=== PATIENT | female | born 1940 | race Caucasian/White ===

== ENCOUNTER 2019-04-12 13:27 | Inpatient (IN) | payer MEDICARE, BC ==
[2019-04-12] MEDS ORDERED: FUROSEMIDE 10 MG/ML 4 ML VIAL IV STA (14:10)
--- NOTE | 2019-04-12 14:13 | ED ---
General Adult HPI - General Chief complaint: Shortness of Breath Stated complaint: SOB, dehydrated Time Seen by Provider: 04/12/19 13:35 Source: patient, family, RN notes reviewed Mode of arrival: wheelchair Limitations: no limitations - History of Present Illness Initial comments: This is a 79-year-old female presents emergency Department complaining of difficulty breathing. Patient states been ongoing about a month she also has a decreased appetite over that same period of time. Patient states over the last week difficulty breathing is CAT scan showed with any exertion. Patient is also noticed over the last week her legs become very swollen. Family also was noticed some bulging veins in her neck as well. Patient denies any chest pain or heaviness. Patient denies any palpitations. Patient denies any recent fever chills or cough per patient denies any lightheadedness dizziness or near syncopal episode. Patient denies any numbness or weakness. Patient denies any abdominal pain patient denies nausea vomiting diarrhea. - Related Data Home Medications Medication Instructions Recorded Confirmed No Known Home Medications 04/12/19 04/12/19 Allergies Allergy/AdvReac Type Severity Reaction Status Date / Time No Known Allergies Allergy Verified 04/12/19 14:00 Review of Systems ROS Statement: Those systems with pertinent positive or pertinent negative responses have been documented in the HPI. ROS Other: All systems not noted in ROS Statement are negative. Past Medical History Additional Past Medical History / Comment(s): RA History of Any Multi-Drug Resistant Organisms: None Reported Past Surgical History: No Surgical Hx Reported Past Psychological History: No Psychological Hx Reported Smoking Status: Former smoker Past Alcohol Use History: None Reported Past Drug Use History: None Reported General Exam - General Exam Comments Initial Comments: GENERAL: Patient is well-developed and well-nourished. Patient is nontoxic and well- hydrated and is in mild distress. ENT: Neck is soft and supple. No significant lymphadenopathy is noted. Oropharynx is clear. Moist mucous membranes. Neck has full range of motion without eliciting any pain. Patient has positive JVD EYES: The sclera were anicteric and conjunctiva were pink and moist. Extraocular movements were intact and pupils were equal round and reactive to light. Eyelids were unremarkable. PULMONARY: She has diminished breath sounds in the right base and crackles in the left. CARDIOVASCULAR: There is a regular rate and rhythm without any murmurs gallops or rubs. ABDOMEN: Soft and nontender with normal bowel sounds. No palpable organomegaly was noted . There is no palpable pulsatile mass. SKIN: Skin is clear with no lesions or rashes and otherwise unremarkable. NEUROLOGIC: Patient is alert and oriented x3. Cranial nerves II through XII are grossly intact. Motor and sensory are also intact. Normal speech, volume and content. Symmetrical smile. MUSCULOSKELETAL: Normal extremities with adequate strength and full range of motion. 2+ edema bilaterally LYMPHATICS: No significant lymphadenopathy is noted PSYCHIATRIC: Normal psychiatric evaluation. Limitations: no limitations Course Vital Signs 04/12/19 04/12/19 04/12/19 13:36 14:31 16:31 Temperature 98.3 F Pulse Rate 105 H 104 H 98 Respiratory 22 18 18 Rate Blood Pressure 144/82 156/104 158/97 O2 Sat by Pulse 93 L 97 98 Oximetry Medical Decision Making - Medical Decision Making EKG shows sinus tachycardia at 180 bpm SD interval is 152 QRS is 112 QT interval 358 QTC is 479. New. Patient received Lasix emergency department I spoke with Dr. Mosley he agreed to admit the patient admitted the patient remaining orders I continued Lasix on the floor. Patient has a high white count and with effusion there could be a infiltrate that is hidden I will start the patient on antibiotics. - Lab Data Result diagrams: 04/12/19 14:00 04/12/19 14:00 Lab Results 04/12/19 04/12/19 04/12/19 Range/Units 14:00 14:00 14:00 WBC 25.1 H (3.8-10.6) k/uL RBC 5.10 (3.80-5.40) m/uL Hgb 10.9 L (11.4-16.0) gm/dL Hct 37.5 (34.0-46.0) % MCV 73.5 L (80.0-100.0) fL MCH 21.3 L (25.0-35.0) pg MCHC 29.0 L (31.0-37.0) g/dL RDW 16.8 H (11.5-15.5) % Plt Count 265 (150-450) k/uL Neutrophils % 93 % Lymphocytes % 3 % Monocytes % 3 % Eosinophils % 0 % Basophils % 0 % Neutrophils # 23.4 H (1.3-7.7) k/uL Lymphocytes # 0.8 L (1.0-4.8) k/uL Monocytes # 0.7 (0-1.0) k/uL Eosinophils # 0.1 (0-0.7) k/uL Basophils # 0.0 (0-0.2) k/uL Hypochromasia Marked Poikilocytosis Slight Anisocytosis Slight Microcytosis Moderate PT (9.0-12.0) sec INR (<1.2) APTT (22.0-30.0) sec Sodium 141 (137-145) mmol/L Potassium 4.6 (3.5-5.1) mmol/L Chloride 103 (98-107) mmol/L Carbon Dioxide 24 (22-30) mmol/L Anion Gap 14 mmol/L BUN 27 H (7-17) mg/dL Creatinine 0.56 (0.52-1.04) mg/dL Est GFR (CKD-EPI)AfAm >90 (>60 ml/min/1.73 sqM) Est GFR (CKD-EPI)NonAf >90 (>60 ml/min/1.73 sqM) Glucose 170 H (74-99) mg/dL Calcium 9.3 (8.4-10.2) mg/dL Magnesium 2.0 (1.6-2.3) mg/dL Total Bilirubin 1.6 H (0.2-1.3) mg/dL AST 52 H (14-36) U/L ALT 47 (9-52) U/L Alkaline Phosphatase 119 (38-126) U/L Troponin I (0.000-0.034) ng/mL NT-Pro-B Natriuret Pep 41137 pg/mL Total Protein 7.2 (6.3-8.2) g/dL Albumin 3.5 (3.5-5.0) g/dL 04/12/19 04/12/19 Range/Units 14:00 14:00 WBC (3.8-10.6) k/uL RBC (3.80-5.40) m/uL Hgb (11.4-16.0) gm/dL Hct (34.0-46.0) % MCV (80.0-100.0) fL MCH (25.0-35.0) pg MCHC (31.0-37.0) g/dL RDW (11.5-15.5) % Plt Count (150-450) k/uL Neutrophils % % Lymphocytes % % Monocytes % % Eosinophils % % Basophils % % Neutrophils # (1.3-7.7) k/uL Lymphocytes # (1.0-4.8) k/uL Monocytes # (0-1.0) k/uL Eosinophils # (0-0.7) k/uL Basophils # (0-0.2) k/uL Hypochromasia Poikilocytosis Anisocytosis Microcytosis PT 13.3 H (9.0-12.0) sec INR 1.3 H (<1.2) APTT 26.2 (22.0-30.0) sec Sodium (137-145) mmol/L Potassium (3.5-5.1) mmol/L Chloride (98-107) mmol/L Carbon Dioxide (22-30) mmol/L Anion Gap mmol/L BUN (7-17) mg/dL Creatinine (0.52-1.04) mg/dL Est GFR (CKD-EPI)AfAm (>60 ml/min/1.73 sqM) Est GFR (CKD-EPI)NonAf (>60 ml/min/1.73 sqM) Glucose (74-99) mg/dL Calcium (8.4-10.2) mg/dL Magnesium (1.6-2.3) mg/dL Total Bilirubin (0.2-1.3) mg/dL AST (14-36) U/L ALT (9-52) U/L Alkaline Phosphatase (38-126) U/L Troponin I 0.050 H* (0.000-0.034) ng/mL NT-Pro-B Natriuret Pep pg/mL Total Protein (6.3-8.2) g/dL Albumin (3.5-5.0) g/dL Disposition Clinical Impression: Acute pulmonary edema, Pleural effusion, Pneumonia Disposition: ADMITTED IP TO THIS [facility] Time of Disposition: 15:56
[2019-04-12 14:28] LABS: Anisocytosis Slight; Basophils % (A) 0 %; Eosinophils # (A) 0.1 k/uL (0-0.7); Eosinophils % (A) 0 %; HCT 37.5 % (34.0-46.0); HGB 10.9 gm/dL (11.4-16.0); Hypochromasia Marked; Lymphocytes # (A) 0.8 k/uL (1.0-4.8); Lymphocytes % (A) 3 %; MCH 21.3 pg (25.0-35.0); MCV 73.5 fL (80.0-100.0); Mean Platelet Volume 8.4; Microcytosis Moderate; Monocytes # (A) 0.7 k/uL (0-1.0); Monocytes % (A) 3 %; Neutrophils # (A) 23.4 k/uL (1.3-7.7); Neutrophils % (A) 93 %; Platelet Count 265 k/uL (150-450); Poikilocytosis Slight; RDW 16.8 % (11.5-15.5); WBC 25.1 k/uL (3.8-10.6)
[2019-04-12 14:37] LABS: INR 1.3 (<1.2); Partial Thromboplastin Time 26.2 sec (22.0-30.0); Prothrombin Time 13.3 sec (9.0-12.0)
[2019-04-12 14:42] LABS: ALT 47 U/L (9-52); AST 52 U/L (14-36); African American GFR (CKD) >90 (>60 ml/min/1.73 sqM); Albumin 3.5 g/dL (3.5-5.0); Alkaline Phosphatase 119 U/L (38-126); Anion Gap 14 mmol/L; Blood Urea Nitrogen 27 mg/dL (7-17); Calcium 9.3 mg/dL (8.4-10.2); Carbon Dioxide 24 mmol/L (22-30); Chloride 103 mmol/L (98-107); Glucose 170 mg/dL (74-99); Potassium 4.6 mmol/L (3.5-5.1); Sodium 141 mmol/L (137-145); Total Bilirubin 1.6 mg/dL (0.2-1.3); Total Protein 7.2 g/dL (6.3-8.2)
--- NOTE | 2019-04-12 14:53 | XR ---
EXAMINATION TYPE: XR chest 2V DATE OF EXAM: 04/12/2019 COMPARISON: None INDICATION: Difficulty breathing TECHNIQUE: Frontal and lateral views of the chest are obtained. FINDINGS: The heart size is borderline prominent. The pulmonary vasculature is normal. There is a moderate right pleural effusion. A small left pleural effusion may be present.. IMPRESSION: 1. Moderate right and small left pleural effusions.
[2019-04-12] MEDS ORDERED: cefTRIAXone IN SWFI 1,000 MG/10 ML SYRINGE IVP STA (15:31)
[2019-04-12] MEDS ORDERED: KETOROLAC 30 MG/ML 1 ML VIAL IVP STA (15:54)
[2019-04-12] MEDS ORDERED: AZITHROMYCIN 500 MG in SODIUM CHLORIDE 0.9% 250 ML IVPB STA (17:48)
[2019-04-12 18:14] LABS: Appearance,Urine Clear (Clear); Bilirubin,Urine Negative (Negative); Blood,Urine Small (Negative); Color,Urine Light Yellow; Glucose,Urine (UA) Negative (Negative); Ketones,Urine Negative (Negative); Leukocyte Esterase,Urine Large (Negative); Mucus,Urine Few /hpf; Nitrite,Urine Negative (Negative); Protein,Urine Negative (Negative); RBC,Urine 7 /hpf (0-5); Specific Gravity,Urine 1.006 (1.001-1.035); Squamous Epithelial Cell,Urine 1 /hpf (0-4); Urobilinogen,Urine <2.0 mg/dL (<2.0)
--- NOTE | 2019-04-12 18:30 | CT ---
EXAMINATION TYPE: CT chest angio for PE with contrast and with 3-D reconstruction renderings DATE OF EXAM: 04/12/2019 COMPARISON: 04/12/2019 CXR HISTORY: Dyspnea. CT DLP: 158.2 mGycm Automated exposure control for dose reduction was used. CONTRAST: CT Chest for pulmonary embolism performed with with IV Contrast, patient injected with 100 mL of Isovue 370. FINDINGS: Airways: Unremarkable. Pleural spaces: There is a large gravity-dependent right pleural effusion occupying one third of the right hemithorax, associated with passive atelectasis. Small left pleural effusion noted, associated with minimal passive atelectasis of the left lung base. Lungs: Other than the above, unremarkable. PULMONARY ARTERIAL TREE: THERE ARE BILATERAL SEGMENTAL FILLING DEFECTS, CONSISTENT WITH NONOCCLUSIVE MULTIFOCAL PULMONARY EMBOLI. THERE IS NO CT EVIDENCE OF RIGHT HEART STRAIN. Mediastinum/selene: There is marked cardiomegaly with panchamber enlargement, coronary calcifications, and aortic and mitral valve plane calcifications. There is no pericardial effusion. There are no acut e aortic findings are evident, although limited contrast opacification of the left heart and aorta li mits sensitivity. No adenopathy. Skeletal structures: No acute findings. Other: Unremarkable. IMPRESSION: 1.) POSITIVE FOR BILATERAL NONOCCLUSIVE PULMONARY EMBOLI WITHOUT EVIDENCE OF RIGHT HEART STRAIN. 2.) Bilateral pleural effusions, larger on the right.
--- NOTE | 2019-04-12 18:31 | P.HPIM ---
History of Present Illness H&P Date: 04/12/19 Isabel Mooney is a 79 year old female patient of Dr. Mendez who presented to [facility] emergency room with a chief complaint of worsening shortness of breath over the past few days, generalized fatigue, lower extremity edema and weakness. Patient states that her symptoms started about 1 month ago but has been worsening significantly over the last few days. Otherwise she denies any complaints there was no fever or chills no headache or dizziness no chest pain no cough no nausea or vomiting no abdominal pain no diarrhea no burning was urination no frequency or urgency and no hematuria. Patient was evaluated in the emergency room she had a chest x-ray that revealed bilateral pleural effusion right more than left, laboratory data was significant for leukocytosis with a white blood count of 25,000 anemia with hemoglobin of 10.9 elevated d-dimer at 5.8 and slightly elevated troponin at 0.05 also BNP was elevated at 16,200 urine analysis revealed evidence of urinary tract infection with large leukocyte esterase and 13 white blood cells per high-power field. Patient was admitted to telemetry floor computed tomography scan angiogram of the chest was ordered to rule out pulmonary embolism results are still pending she was started on IV antibiotic Rocephin and Zithromax she was started on IV Lasix 40 mg every 12 hours echocardiogram was ordered pulmonary consultation and cardiology consultation were requested. Past Medical History Additional Past Medical History / Comment(s): RA History of Any Multi-Drug Resistant Organisms: None Reported Past Surgical History: No Surgical Hx Reported Past Psychological History: No Psychological Hx Reported Smoking Status: Former smoker Past Alcohol Use History: None Reported Past Drug Use History: None Reported Medications and Allergies Home Medications Medication Instructions Recorded Confirmed Type No Known Home Medications 04/12/19 04/12/19 History Allergies Allergy/AdvReac Type Severity Reaction Status Date / Time No Known Allergies Allergy Verified 04/12/19 14:00 Physical Exam Vitals: Vital Signs Temp Pulse Pulse Resp BP BP Pulse Ox 04/12/19 17:18 96.9 F L 101 H 18 147/93 95 04/12/19 16:31 98 18 158/97 98 04/12/19 14:31 104 H 18 156/104 97 04/12/19 13:36 98.3 F 105 H 22 144/82 93 L Intake and Output 04/12/19 04/12/19 04/12/19 06:59 14:59 22:59 Output Total 900 Balance -900 Output: Urine 900 Other: # Voids 1 Weight 48.988 kg 72 kg In general patient is alert and oriented 3 in no apparent distress HEENT head normocephalic and atraumatic Neck is supple no jugular venous distention no goiter no lymphadenopathy no carotid bruit Chest exam reveals a few scattered crackles no wheezing Cardiac exam reveals regular heart sounds S1 and S2 no gallops no murmurs Abdomen is soft nontender no organomegaly with normal bowel sounds Extremity exam reveals no edema no cyanosis or clubbing, there is severe joint deformities in the hands related to long-standing rheumatoid arthritis Neurological examination reveals no gross focal deficit gait was not tested due to patient weakness Results CBC & Chem 7: 04/12/19 14:00 04/12/19 14:00 Labs: Abnormal Lab Results - Last 24 Hours (Table) 04/12/19 04/12/19 04/12/19 Range/Units 14:00 14:00 14:00 WBC 25.1 H (3.8-10.6) k/uL Hgb 10.9 L (11.4-16.0) gm/dL MCV 73.5 L (80.0-100.0) fL MCH 21.3 L (25.0-35.0) pg MCHC 29.0 L (31.0-37.0) g/dL RDW 16.8 H (11.5-15.5) % Neutrophils # 23.4 H (1.3-7.7) k/uL Lymphocytes # 0.8 L (1.0-4.8) k/uL PT 13.3 H (9.0-12.0) sec INR 1.3 H (<1.2) D-Dimer (<0.60) mg/L FEU BUN 27 H (7-17) mg/dL Glucose 170 H (74-99) mg/dL Total Bilirubin 1.6 H (0.2-1.3) mg/dL AST 52 H (14-36) U/L Troponin I (0.000-0.034) ng/mL Urine Blood (Negative) Ur Leukocyte Esterase (Negative) Urine RBC (0-5) /hpf Urine WBC (0-5) /hpf Urine Mucus (None) /hpf 04/12/19 04/12/1904/12/19 Range/Units 14:00 14:00 18:00 WBC (3.8-10.6) k/uL Hgb (11.4-16.0) gm/dL MCV (80.0-100.0) fL MCH (25.0-35.0) pg MCHC (31.0-37.0) g/dL RDW (11.5-15.5) % Neutrophils # (1.3-7.7) k/uL Lymphocytes # (1.0-4.8) k/uL PT (9.0-12.0) sec INR (<1.2) D-Dimer 5.84 H (<0.60) mg/L FEU BUN (7-17) mg/dL Glucose (74-99) mg/dL Total Bilirubin (0.2-1.3) mg/dL AST (14-36) U/L Troponin I 0.050 H* (0.000-0.034) ng/mL Urine Blood Small H (Negative) Ur Leukocyte Esterase Large H (Negative) Urine RBC 7 H (0-5) /hpf Urine WBC 13 H (0-5) /hpf Urine Mucus Few H (None) /hpf Assessment and Plan Plan: #1 shortness of breath multifactorial related to bilateral pleural effusion possible congestive heart failure as evidenced by elevated BNP, pulmonary congestion, bilateral pleural effusion, will check echocardiogram to assess card iac function, cardiology consultation was requested #2 leukocytosis patient has evidence of urinary tract infection, however cannot rule out pneumonia on current chest x-ray due to significant pleural effusion patient was started on IV Rocephin and IV Zithromax will follow closely #3 underlying history of rheumatoid arthritis with severe joint deformity, patient was maintained on methotrexate and prednisone, however she decided with her physician to stop all medications about 10 years ago. #4 elevated d-dimer CT angiogram of the chest was done to rule out pulmonary embolism results are still pending awaiting results to decide on anticoagulation and DVT prophylaxis #5 for GI prophylaxis patient is started on Protonix
[2019-04-12] MEDS ORDERED: HYDROcodone/APAP 5-325MG 1 EACH TAB PO PRN (18:35)
[2019-04-12] MEDS ORDERED: ACETAMINOPHEN TAB 500 MG TAB PO PRN (18:35)
[2019-04-12] MEDS ORDERED: HEPARIN SODIUM,PORCINE 10,000 UNIT/ML 1 ML VIAL IV ONE (19:06)
[2019-04-12] MEDS ORDERED: HEPARIN SODIUM,PORCINE 5,000 UNIT/ML 1 ML VIAL IV PRN (19:06)
[2019-04-12] MEDS ORDERED: HEPARIN SOD,PORK IN 0.45% NACL 25,000 UNIT in 0.45% NACL 1 250ML.BAG IV SCH (19:15)
[2019-04-12] MEDS: CARVEDILOL 3.125 MG TAB PO SCH (19:59)
[2019-04-12] MEDS: LOSARTAN 25 MG TAB PO SCH (19:59)
[2019-04-13] MEDS: FUROSEMIDE 10 MG/ML 4 ML VIAL IV SCH ×2 (04:18→19:48)
[2019-04-13] MEDS: CARVEDILOL 3.125 MG TAB PO SCH (06:47)
[2019-04-13] MEDS: LOSARTAN 25 MG TAB PO SCH (08:56)
--- NOTE | 2019-04-13 09:26 | ECHOF ---
Referral Reason:Short of breath MEASUREMENTS -------- HEIGHT: 160.0 cm WEIGHT: 49.0 kg BP: RVIDd: 3.6 cm (< 3.3) IVSd: 1.3 cm (0.6 - 1.1) LVIDd: 4.4 cm (3.9 - 5.3) LVPWd: 1.3 cm (0.6 - 1.1) IVSs: 1.5 cm LVIDs: 4.3 cm LVPWs: 1.6 cm LA Diam: 4.5 cm (2.7 - 3.8) LAESV Index (A-L): 48.88 ml/m Ao Diam: 2.7 cm (2.0 - 3.7) AV Cusp: 1.4 cm (1.5 - 2.6) MV EXCURSION: 12.690 mm (> 18.000) MV EF SLOPE: 27 mm/s (70 - 150) EPSS: 1.6 cm MV E Abbe: 1.62 m/s MV DecT: 149 ms MV A Abbe: 1.17 m/s MV E/A Ratio: 1.39 AV maxP.82 mmHg AV meanP.13 mmHg RAP: 15.00 mmHg RVSP: 56.52 mmHg FINDINGS -------- Sinus rhythm. This was a technically good study. The left ventricular size is normal. There is mild concentric left ventricular hypertrophy. Overa ll left ventricular systolic function is severely impaired with, an EF between 20 - 25 %. Restricti ve LV filling pattern, consistent with elevated LA pressure 43.81. The right ventricle is mildly enlarged. LA is severely dilated >40 ml/m2 The right atrium is normal in size. Interatrial and interventricular septum intact. There is mild aortic valve sclerosis. Peak/mean gradient across the Aortic Valve is 13.82mmHg / 5.1 3mmHg. The mitral valve leaflets are mildly thickened. [id number] mitral regurgitation is present. The peak and mean MV gradients are 13.36mmHg 6.20mmHg as measured by doppler. Severe tricuspid regurgitation present. There is severe pulmonary hypertension. The right ventric ular systolic pressure, as measured by Doppler, is 56.52mmHg. The aortic root size is normal. Normal inferior vena cava with less than 50% inspiratory collapse consistent with estimated right atr ial pressure of 15 mmHg. There is no pericardial effusion. Pleural Effusion with Fibrin. CONCLUSIONS -------- 1. Sinus rhythm. 2. This was a technically good study. 3. The left ventricular size is normal. 4. There is mild concentric left ventricular hypertrophy. 5. Overall left ventricular systolic function is severely impaired with, an EF between 20 - 25 %. 6. Restrictive LV filling pattern, consistent with elevated LA pressure 43.81. 7. The right ventricle is mildly enlarged. 8. LA is severely dilated >40 ml/m2 9. The right atrium is normal in size. 10. Interatrial and interventricular septum intact. 11. There is mild aortic valve sclerosis. 12. Peak/mean gradient across the Aortic Valve is 13.82mmHg / 5.13mmHg. 13. The mitral valve leaflets are mildly thickened. 14. [id number] mitral regurgitation is present. 15. The peak and mean MV gradients are 13.36mmHg 6.20mmHg as measured by doppler. 16. Severe tricuspid regurgitation present. 17. There is severe pulmonary hypertension. 18. The right ventricular systolic pressure, as measured by Doppler, is 56.52mmHg. 19. The aortic root size is normal. 20. Normal inferior vena cava with less than 50% inspiratory collapse consistent with estimated right atrial pressure of 15 mmHg. 21. There is no pericardial effusion. 22. Pleural Effusion with Fibrin. PRESS BRAKE OPERATOR: Hoda Payan RDCS
[2019-04-13 09:45] LABS: Anisocytosis Slight; Basophils % (A) 0 %; Eosinophils # (A) 0.1 k/uL (0-0.7); Eosinophils % (A) 0 %; HCT 35.6 % (34.0-46.0); HGB 10.2 gm/dL (11.4-16.0); Hypochromasia Marked; Lymphocytes # (A) 0.8 k/uL (1.0-4.8); Lymphocytes % (A) 5 %; MCH 21.5 pg (25.0-35.0); MCHC 28.6 g/dL (31.0-37.0); MCV 75.3 fL (80.0-100.0); Mean Platelet Volume 8.3; Microcytosis Slight; Monocytes # (A) 0.5 k/uL (0-1.0); Monocytes % (A) 3 %; Neutrophils % (A) 91 %; Platelet Count 184 k/uL (150-450); Poikilocytosis Moderate; RBC 4.72 m/uL (3.80-5.40); RDW 16.1 % (11.5-15.5); WBC 16.4 k/uL (3.8-10.6)
[2019-04-13 09:47] LABS: ALT 41 U/L (9-52); AST 33 U/L (14-36); African American GFR (CKD) >90 (>60 ml/min/1.73 sqM); Albumin 2.5 g/dL (3.5-5.0); Alkaline Phosphatase 79 U/L (38-126); Anion Gap 8 mmol/L; Blood Urea Nitrogen 25 mg/dL (7-17); Calcium 8.3 mg/dL (8.4-10.2); Carbon Dioxide 32 mmol/L (22-30); Chloride 101 mmol/L (98-107); Glucose 122 mg/dL (74-99); Potassium 3.1 mmol/L (3.5-5.1); Sodium 141 mmol/L (137-145); Total Protein 5.6 g/dL (6.3-8.2)
--- NOTE | 2019-04-13 11:33 | P.CRDCN ---
History of Present Illness Consult date: 04/13/19 Requesting physician: Vadim Mosley Consult reason: congestive heart failure Chief complaint: Weakness, shortness of breath and bilateral leg swelling History of present illness: This is a pleasant 79-year-old female with history of rheumatoid arthritis for several years, she states that in the past she used to be on methotrexate and steroids, but has not taken medication for this for several years, due to reactions that she had to this medication. She denies any history of hypertension, no diabetes, no hyperlipidemia, she is a nonsmoker. She's been in fairly good health overall, quite active, until about a month ago she states that she became progressively more and more weak which she attributed to her rheumatoid arthritis. Over the past one week she has noticed herself to be very short of breath, and is noticed significant amount of swelling in her bilateral lower extremities. For this reason she came to the hospital for further evaluation and treatment. Blood pressure on arrival here 144/80 with a heart rate of 105, 93% on room air. Initial chest x-ray showed a moderate right and small left pleural effusion. EKG showed a sinus tachycardia with evidence of left ventricular hypertrophy, nonspecific ST-T wave changes. Echocardiogram with Doppler study was performed which revealed an ejection fraction of 20-25%, moderate to severe mitral regurgitation and severe tricuspid regurgitation noted along with severe pulmonary hypertension. CTA of the chest was performed which was positive for bilateral nonocclusive pulmonary emboli without evidence of right heart strain. Bilateral pleural effusions larger on the right. Laboratory data reviewed, white blood cell count 25.1, 16.4 this morning, hemoglobin 10.9, 10.2 this morning, platelet count 184. D-dimer 5.8, sodium 141, potassium 4.6 on admission, 3.1 this morning. BUN 25 and creatinine 0.5. Magnesium level I.6. Troponin 0.050, BNP level 16,200. Positive UTI. Patient was initiated on IV Lasix as well as IV heparin, she diuresed well, her weight is down today. She does have pink tinged urine this morning. We will Continue to monitor this. He should also been initiated on Coreg and losartan, we will increase her Coreg today to 6.25 mg twice a day, and the losartan to 50 mg daily. Continue current dose of IV Lasix. Past Medical History Additional Past Medical History / Comment(s): RA History of Any Multi-Drug Resistant Organisms: None Reported Past Surgical History: No Surgical Hx Reported Additional Past Surgical History / Comment(s): nosel poly removed Past Anesthesia/Blood Transfusion Reactions: No Reported Reaction Past Psychological History: No Psychological Hx Reported Smoking Status: Former smoker Past Alcohol Use History: None Reported Past Drug Use History: None Reported - Past Family History Mother Family Medical History: Cancer Additional Family Medical History / Comment(s): breast, Aunt had RA Medications and Allergies Home Medications Medication Instructions Recorded Confirmed Type No Known Home Medications 04/12/19 04/12/19 History Allergies Allergy/AdvReac Type Severity Reaction Status Date / Time No Known Allergies Allergy Verified 04/12/19 14:00 Physical Exam Vitals: Vital Signs Temp Pulse Pulse Pulse Resp BP BP 04/13/19 07:46 77 18 132/81 04/13/19 04:00 97.8 F 85 22 148/78 04/13/19 00:00 89 18 92/63 04/12/19 20:00 97.7 F 94 17 137/76 04/12/19 17:18 96.9 F L 101 H 18 147/93 04/12/19 16:31 98 18 158/97 04/12/19 14:31 104 H 18 156/104 04/12/19 13:36 98.3 F 105 H 22 144/82 Pulse Ox 04/13/19 07:46 93 L 04/13/19 04:00 91 L 04/13/19 00:00 94 L 04/12/19 20:00 95 04/12/19 17:18 95 04/12/19 16:31 98 04/12/19 14:31 97 04/12/19 13:36 93 L Intake and Output 04/12/19 04/13/19 04/13/19 22:59 06:59 14:59 Intake Total 100 669.12 Output Total 900 1450 Balance -800 -780.88 Intake: Intake, IV Titration 69.12 Amount Heparin Sod,Pork in 0.45% 69.12 NaCl 25,000 unit In 0.45 % NaCl 1 250ml.bag @ 18 UNITS/KG/HR 12.96 mls/hr IV .[id number] [facility] Rx#: [id number] Oral 100 600 Output: Urine 900 1450 Other: Voiding Method Indwelling Catheter Indwelling Catheter # Voids 1 Weight 72 kg 44.3 kg PHYSICAL EXAMINATION: GENERAL: 79-year-old female in no acute distress at the time of my examination HEENT: Head is atraumatic, normocephalic. Pupils equal, round. Sclera anicteric. Conjunctiva are clear. Mucous membranes of the mouth are moist. Neck is supple. There is elevated jugular venous pressure. No carotid bruit is heard. HEART EXAMINATION: Heart S1 and S2 systolic murmur is heard CHEST EXAMINATION: Lungs are clear with diminished air entry to bilateral bases ABDOMEN: Soft, nontender. Bowel sounds are heard. No organomegaly noted. EXTREMITIES: 2+ peripheral pulses with 1+ evidence of peripheral edema and no calf tenderness noted. Evidence of deformity patient to the hands from rheumatoid arthritis noted. NEUROLOGIC patient is awake, alert and oriented 3 . . Results 04/13/19 09:05 04/13/19 09:05 Cardiac Enzymes 04/12/19 04/12/19 04/13/19 Range/Units 14:00 14:00 09:05 AST 52 H 33 (14-36) U/L Troponin I 0.050 H* (0.000-0.034) ng/mL Coagulation 04/12/19 04/13/19 04/13/19 Range/Units 14:00 00:50 09:05 PT 13.3 H (9.0-12.0) sec APTT 26.2 >200.0 H* 105.9 H* (22.0-30.0) sec CBC 04/12/19 04/13/19 Range/Units 14:00 09:05 WBC 25.1 H 16.4 H (3.8-10.6) k/uL RBC 5.10 4.72 (3.80-5.40) m/uL Hgb 10.9 L 10.2 L (11.4-16.0) gm/dL Hct 37.5 35.6 (34.0-46.0) % Plt Count 265 184 (150-450) k/uL Comprehensive Metabolic Panel 04/12/19 04/13/19 Range/Units 14:00 09:05 Sodium 141 141 (137-145) mmol/L Potassium 4.6 3.1 L (3.5-5.1) mmol/L Chloride 103 101 (98-107) mmol/L Carbon Dioxide 24 32 H (22-30) mmol/L BUN 27 H 25 H (7-17) mg/dL Creatinine 0.56 0.55 (0.52-1.04) mg/dL Glucose 170 H 122 H (74-99) mg/dL Calcium 9.3 8.3 L (8.4-10.2) mg/dL AST 52 H 33 (14-36) U/L ALT 47 41 (9-52) U/L Alkaline Phosphatase 119 79 (38-126) U/L Total Protein 7.2 5.6 L (6.3-8.2) g/dL Albumin 3.5 2.5 L (3.5-5.0) g/dL Current Medications Generic Name Dose Route Start Last Admin Trade Name Freq PRN Reason Stop Dose Admin Acetaminophen 500 mg 04/12/19 18:35 Tylenol Tab PO Q4HR PRN Fever and/ or MILD Pain Hydrocodone Bitart/Acetaminophen 1 each 04/12/19 18:35 [place] 5-325 PO Q6HR PRN MODERATE Pain Carvedilol 6.25 mg 04/13/19 17:30 Coreg PO BID-W/MEALS SARAN Furosemide 40 mg 04/13/19 06:00 04/13/19 04:18 Lasix IV 40 mg Q12H SARAN Administration Heparin Sodium (Porcine) 0 unit 04/12/19 19:06 Heparin IV PER PROTOCOL PRN Low PTT Protocol Azithromycin 500 mg/ Sodium 250 mls @ 250 mls/hr 04/13/19 18:00 Chloride IVPB DAILY@1800 SARAN Ceftriaxone Sodium 1 gm/ 50 mls @ 100 mls/hr 04/13/19 09:00 04/13/19 08:56 Sodium Chloride IVPB 100 mls/hr Q24HR SARAN Administration Heparin Sodium/Sodium Chloride 250 mls @ 7.974 mls/hr 04/12/19 19:15 04/13/19 03:16 25,000 unit/ Sodium Chloride IV 15 units/kg/hr .Q24H SARAN 10.8 mls/hr Titration Protocol 18 UNITS/KG/HR Losartan Potassium 50 mg 04/14/19 09:00 Cozaar PO DAILY SARAN Intake and Output 04/12/19 04/13/19 04/13/19 22:59 06:59 14:59 Intake Total 100 669.12 Output Total 900 1450 Balance -800 -780.88 Intake: Intake, IV Titration 69.12 Amount Heparin Sod,Pork in 0.45% 69.12 NaCl 25,000 unit In 0.45 % NaCl 1 250ml.bag @ 18 UNITS/KG/HR 12.96 mls/hr IV .[id number] [facility] Rx#: [id number] Oral 100 600 Output: Urine 900 1450 Other: Voiding Method Indwelling Catheter Indwelling Catheter # Voids 1 Weight 72 kg 44.3 kg 04/13/19 09:05 04/13/19 09:05 EKG Interpretations (text) EKG shows sinus tachycardia with LVH strain pattern, nonspecific ST-T wave changes Assessment and Plan Plan: Assessment and plan #1 symptoms of progressively worsening shortness of breath with associated bilateral peripheral edema. Evidence of congestive cardiac failure, systolic in nature. Echocardiogram with Doppler study revealed an ejection fraction of 20-25%, restrictive LV filling pattern, moderate to severe mitral regurgitation with severe tricuspid regurg and severe pulmonary hypertension. #2 multifocal pulmonary embolism #3 rheumatoid arthritis with severe joint deformity, patient had been on methotrexate and prednisone, 10 you to approximately 10 years ago #4 leukocytosis with evidence of UTI Plan We'll continue current dose of IV Lasix, increase the dose of Coreg and losartan. We'll also start the patient on Aldactone today. Obtain a venous duplex study. Continue to monitor intake and output along with daily weights and daily lytes BUN and creatinine. Down the road patient may require cardiac catheterization to rule out underlying coronary artery disease. At this time we will continue treatment for heart failure and pulmonary embolism. DNP note has been reviewed, I agree with a documented findings and plan of care. Patient was seen and examined.
[2019-04-13] MEDS ORDERED: POTASSIUM CHLORIDE ER 20 MEQ TAB.ER PO STA (11:49)
--- NOTE | 2019-04-13 12:20 | US ---
EXAMINATION TYPE: US venous doppler duplex LE DATE OF EXAM: 04/13/2019 11:59 AM COMPARISON: CT chest CLINICAL HISTORY: r/o DVT. PE SIDE PERFORMED: Bilateral TECHNIQUE: The lower extremity deep venous system is examined utilizing real time linear array sonog pranav with graded compression, doppler sonography and color-flow sonography. VESSELS IMAGED: Common Femoral Vein Deep Femoral Vein Greater Saphenous Vein * Femoral Vein Popliteal Vein Small Saphenous Vein * Proximal Calf Veins (* superficial vessels) Grayscale, color doppler, spectral doppler imaging performed of the deep veins of the lower extremiti es. There is normal flow, compressibility, vascular waveforms on the left. Right Leg: Positive for DVT in the peroneal trunk proximally extending into the calf veins. Left Leg: Negative for DVT IMPRESSION: Deep venous thrombosis is seen within the right peroneal trunk extending into the calf v eins. This patient has known pulmonary emboli on the exam of 04/12/2019. No deep venous thrombosis of the left lower extremity.
[2019-04-13] MEDS ORDERED: HEPARIN SODIUM,PORCINE 5,000 UNIT/ML 1 ML VIAL IV PRN (12:38)
--- NOTE | 2019-04-13 12:47 | P.PN ---
Subjective Progress Note Date: 04/13/19 Isabel Mooney is a 79 year old female patient of Dr. Mendez who presented to [facility] emergency room with a chief complaint of worsening shortness of breath over the past few days, generalized fatigue, lower extremity edema and weakness. Patient states that her symptoms started about 1 month ago but has been worsening significantly over the last few days. Otherwise she denies any complaints there was no fever or chills no headache or dizziness no chest pain no cough no nausea or vomiting no abdominal pain no diarrhea no burning was urination no frequency or urgency and no hematuria. Patient was evaluated in the emergency room she had a chest x-ray that revealed bilateral pleural effusion right more than left, laboratory data was significant for leukocytosis with a white blood count of 25,000 anemia with hemoglobin of 10.9 elevated d-dimer at 5.8 and slightly elevated troponin at 0.05 also BNP was elevated at 16,200 urine analysis revealed evidence of urinary tract infection with large leukocyte esterase and 13 white blood cells per high-power field. Patient was admitted to telemetry floor computed tomography scan angiogram of the chest was ordered to rule out pulmonary embolism results are still pending she was started on IV antibiotic Rocephin and Zithromax she was started on IV Lasix 40 mg every 12 hours echocardiogram was ordered pulmonary consultation and cardiology consultation were requested. 04/13/2019 patient had a CTA of the chest that was positive for bilateral nonocclusive PE without heart strain there is also bilateral pleural effusions right greater than left. I she was started on IV heparin. She remains on IV Lasix for her pleural effusions and CHF. And also is on antibiotics for UTI and possible pneumonia. Patient had an echo showing an EF of 20-25% mild left ventricle hypertrophy. Left atrium severely dilated. Severe pulmonary hypertension. Severe tricuspid regurgitation and moderate to severe mitral regurgitation. Patient does report improvement in her shortness of breath. She did have Dickerson catheter placed yesterday due to her being on the IV Lasix and having some difficulty ambulating. A there was some Dickerson catheter trauma she had some blood in her urine. Per nursing staff this is improving. And she does remain on IV heparin hemoglobin 10.2. Patient denies any chest pain. Denies any nausea or vomiting. Denies any bowel movement changes or urinary symptoms prior to Dickerson catheter being placed. Objective - Vital Signs Vital signs: Vital Signs Temp 97.8 F 04/13/19 04:00 Pulse 77 04/13/19 07:46 Resp 18 04/13/19 07:46 BP 132/81 04/13/19 07:46 Pulse Ox 93 L 04/13/19 07:46 Intake & Output 04/12/19 04/13/19 04/13/19 18:59 06:59 18:59 Intake Total 100 669.12 84.42 Output Total 900 1450 Balance -800 -780.88 84.42 Weight 72 kg 44.3 kg 44.3 kg Intake: Intake, IV Titration 69.12 84.42 Amount Heparin Sod,Pork in 0.45% 69.12 84.42 NaCl 25,000 unit In 0.45 % NaCl 1 250ml.bag @ 18 UNITS/KG/HR 12.96 mls/hr IV .[id number] [facility] Rx#: [id number] Oral 100 600 Output: Urine 900 1450 Other: Voiding Method Indwelling Catheter # Voids 1 - Exam Head normocephalic Neck supple Lungs diminished bilaterally Heart regular rate and rhythm S1-S2, no rub or gallop Abdomen is soft nontender nondistended positive bowel sounds no hepatosplenomegaly Extremities no edema. Hands are contracted with severe joint deformities due to the long-standing rheumatoid arthritis Neuro alert and orientated to 3 - Labs CBC & Chem 7: 04/13/19 09:05 04/13/19 09:05 Labs: Abnormal Lab Results - Last 24 Hours (Table) 04/12/19 04/12/19 04/12/19 Range/Units 14:00 14:00 14:00 WBC 25.1 H (3.8-10.6) k/uL Hgb 10.9 L (11.4-16.0) gm/dL MCV 73.5 L (80.0-100.0) fL MCH 21.3 L (25.0-35.0) pg MCHC 29.0 L (31.0-37.0) g/dL RDW 16.8 H (11.5-15.5) % Neutrophils # 23.4 H (1.3-7.7) k/uL Lymphocytes # 0.8 L (1.0-4.8) k/uL PT 13.3 H (9.0-12.0) sec INR 1.3 H (<1.2) APTT (22.0-30.0) sec D-Dimer (<0.60) mg/L FEU Potassium (3.5-5.1) mmol/L Carbon Dioxide (22-30) mmol/L BUN 27 H (7-17) mg/dL Glucose 170 H (74-99) mg/dL Plasma Lactic Acid Chandra (0.7-2.0) mmol/L Calcium (8.4-10.2) mg/dL Total Bilirubin 1.6 H (0.2-1.3) mg/dL AST 52 H (14-36) U/L Troponin I (0.000-0.034) ng/mL Total Protein (6.3-8.2) g/dL Albumin (3.5-5.0) g/dL Urine Blood (Negative) Ur Leukocyte Esterase (Negative) Urine RBC (0-5) /hpf Urine WBC (0-5) /hpf Urine Mucus (None) /hpf 04/12/19 04/12/19 04/12/19 Range/Units 14:00 14:00 18:00 WBC (3.8-10.6) k/uL Hgb (11.4-16.0) gm/dL MCV (80.0-100.0) fL MCH (25.0-35.0) pg MCHC (31.0-37.0) g/dL RDW (11.5-15.5) % Neutrophils # (1.3-7.7) k/uL Lymphocytes # (1.0-4.8) k/uL PT (9.0-12.0) sec INR (<1.2) APTT (22.0-30.0) sec D-Dimer 5.84 H (<0.60) mg/L FEU Potassium (3.5-5.1) mmol/L Carbon Dioxide (22-30) mmol/L BUN (7-17) mg/dL Glucose (74-99) mg/dL Plasma Lactic Acid Chandra (0.7-2.0) mmol/L Calcium (8.4-10.2) mg/dL Total Bilirubin (0.2-1.3) mg/dL AST (14-36) U/L Troponin I 0.050 H* (0.000-0.034) ng/mL Total Protein (6.3-8.2) g/dL Albumin (3.5-5.0) g/dL Urine Blood Small H (Negative) Ur Leukocyte Esterase Large H (Negative) Urine RBC 7 H (0-5) /hpf Urine WBC 13 H (0-5) /hpf Urine Mucus Few H (None) /hpf 04/12/19 04/13/19 04/13/19 Range/Units 18:17 00:50 09:05 WBC 16.4 H (3.8-10.6) k/uL Hgb 10.2 L (11.4-16.0) gm/dL MCV 75.3 L (80.0-100.0) fL MCH 21.5 L (25.0-35.0) pg MCHC 28.6 L (31.0-37.0) g/dL RDW 16.1 H (11.5-15.5) % Neutrophils # 15.0 H (1.3-7.7) k/uL Lymphocytes # 0.8 L (1.0-4.8) k/uL PT (9.0-12.0) sec INR (<1.2) APTT >200.0 H* (22.0-30.0) sec D-Dimer (<0.60) mg/L FEU Potassium (3.5-5.1) mmol/L Carbon Dioxide (22-30) mmol/L BUN (7-17) mg/dL Glucose (74-99) mg/dL Plasma Lactic Acid Chandra 2.1 H* (0.7-2.0) mmol/L Calcium (8.4-10.2) mg/dL Total Bilirubin (0.2-1.3) mg/dL AST (14-36) U/L Troponin I (0.000-0.034) ng/mL Total Protein (6.3-8.2) g/dL Albumin (3.5-5.0) g/dL Urine Blood (Negative) Ur Leukocyte Esterase (Negative) Urine RBC (0-5) /hpf Urine WBC (0-5) /hpf Urine Mucus (None) /hpf 04/13/19 04/13/19 Range/Units 09:05 09:05 WBC (3.8-10.6) k/uL Hgb (11.4-16.0) gm/dL MCV (80.0-100.0) fL MCH (25.0-35.0) pg MCHC (31.0-37.0) g/dL RDW (11.5-15.5) % Neutrophils # (1.3-7.7) k/uL Lymphocytes # (1.0-4.8) k/uL PT (9.0-12.0) sec INR (<1.2) APTT 105.9 H* (22.0-30.0) sec D-Dimer (<0.60) mg/L FEU Potassium 3.1 L (3.5-5.1) mmol/L Carbon Dioxide 32 H (22-30) mmol/L BUN 25 H (7-17) mg/dL Glucose 122 H (74-99) mg/dL Plasma Lactic Acid Chandra (0.7-2.0) mmol/L Calcium 8.3 L (8.4-10.2) mg/dL Total Bilirubin (0.2-1.3) mg/dL AST (14-36) U/L Troponin I (0.000-0.034) ng/mL Total Protein 5.6 L (6.3-8.2) g/dL Albumin 2.5 L (3.5-5.0) g/dL Urine Blood (Negative) Ur Leukocyte Esterase (Negative) Urine RBC (0-5) /hpf Urine WBC (0-5) /hpf Urine Mucus (None) /hpf Microbiology - Last 24 Hours (Table) 04/12/19 18:00 Urine Culture - Preliminary Urine,Voided Assessment and Plan Assessment: 1. Shortness of breath: Multifocal secondary to bilateral pleural effusions, congestive heart failure exacerbation, and bilateral pulmonary embolus 2. Bilateral pulmonary emboli: CT of the chest shows bilateral nonocclusive PE without heart strain. Continue the IV heparin per protocol 3. Acute systolic congestive heart failure exacerbation: Continue IV Lasix. Cardiology is following. Echo showed an EF of 20-25%, mild left ventricle hypertrophy, left atrium severely dilated, severe pulmonary hypertension, severe tricuspid regurgitation, moderate to severe mitral regurgitation. Cardiology did add Aldactone, losartan and Coreg 4. Rheumatoid arthritis with severe joint deformity. Patient had been on methotrexate and prednisone previously. She stopped medications about 10 years ago per her decision and physician decision 5. UTI: Continue the Rocephin. Await urine culture results 6. Leukocytosis possibly related to UTI. Cannot completely rule out pneumonia due to pleural effusions. Patient will remain on IV Rocephin and azithromycin 7. Essential hypertension: Medications added during this admission include losartan and Coreg 8. Hypokalemia: Patient received K-Dur 20 milliequivalents and Aldactone has been added which will help increase potassium level. Repeat potassium level in a.m. also will check a magnesium level 9. Severe protein calorie malnutrition: Add ensure shakes 10. Anemia hemoglobin is 10.2. Check iron studies. Monitor closely since patient did have some hematuria but this is not resolving is likely related to Dickerson catheter trauma. GI prophylaxis Pepcid and DVT prophylaxis IV heparin I performed an examination of the patient and discussed their management with the physician Acting Professor. I have reviewed the Physician Acting Professor's notes and agree with the documented findings and plan of care
[2019-04-13] MEDS: SPIRONOLACTONE 25 MG TAB PO SCH (12:49)
[2019-04-13 13:34] LABS: INR 1.4 (<1.2); Prothrombin Time 13.9 sec (9.0-12.0)
[2019-04-13] MEDS ORDERED: AZITHROMYCIN 500 MG in SODIUM CHLORIDE 0.9% 250 ML IVPB SCH (18:00)
[2019-04-13 19:01] LABS: Iron Saturation 3.24 (12.00-45.00)
[2019-04-13] MEDS: IPRATROPIUM-ALBUTEROL 3 ML NEB INHALATION SCH (19:47)
[2019-04-13] MEDS: CARVEDILOL 6.25 MG TAB PO SCH (19:48)
[2019-04-13] MEDS: HEPARIN SOD,PORK IN 0.45% NACL 25,000 UNIT in 0.45% NACL 1 250ML.BAG IV SCH (20:12)
[2019-04-13] MEDS ORDERED: HEPARIN SODIUM,PORCINE 5,000 UNIT/ML 1 ML VIAL SQ SCH (21:00)
--- NOTE | 2019-04-13 22:02 | CONS ---
CONSULTATION This is a pulmonary critical care consultation. DATE OF SERVICE: April 13, 2019 REASON FOR CONSULTATION: Shortness of breath. HISTORY OF PRESENT ILLNESS: This is a 79-year-old female who presented to the emergency department complaining of difficulty breathing. It has been going on and for about a month ago or so. In the same period of time, she admits to poor appetite and some weight loss. Also, she noted, lower extremity edema. She is having difficulty lying flat in bed as well. Her shortness of breath is primarily with exertion but sometimes also at rest. She denies any chest pain or pressure. No fever or chills. No nausea, vomiting or diarrhea. The patient had a chest x-ray which showed what appeared to be bilateral effusions right greater than left. She also had a CT angiogram which revealed evidence of bilateral nonocclusive pulmonary emboli and a Doppler of the lower extremity which revealed a right lower extremity DVT. For that reason, she was admitted to the hospital. She is lying on her left side. Oxygen in place. She states she feels much more comfortable today than she did yesterday. She is certainly not back to baseline. Her echocardiogram showed an ejection fraction of only 20-25 percent. Interestingly, the patient has a history of rheumatoid arthritis. She was seeing a filter tank tender helper in the past, Dr. Delcid. In the past, she was treated with prednisone and methotrexate and other medications such as pain medications. She stopped going to doctors maybe 10 or 12 years ago. She has not seen a doctor in recent years. MEDICATIONS: Home medications are none. ALLERGIES: None. Current medications here in the hospital include Tylenol, Zithromax, carvedilol, ceftriaxone, famotidine, Lasix, heparin, [place], losartan, and Aldactone. PAST MEDICAL HISTORY: Positive for rheumatoid arthritis. She has not seen a doctor in a number of years. SURGICAL HISTORY: Unremarkable. SOCIAL HISTORY: Positive for previous remote minimal tobacco use. 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 FAMILY HISTORY: Negative. She states both her mother and father were pretty healthy when they were alive. She denies any major illnesses in any of her siblings. REVIEW OF SYSTEMS: CONSTITUTIONAL: Weakness. NEUROLOGIC: Negative. HEENT negative. CARDIOVASCULAR: Negative. PULMONARY: Shortness of breath, worse on exertion then at rest. GI negative. negative. RHEUMATOLOGIC negative. IMMUNOLOGIC negative. ENDOCRINOLOGICAL: Negative. DERMATOLOGIC negative. I should point out that the review of systems is positive for lower extremity edema as well. PHYSICAL EXAMINATION: VITAL SIGNS: Current vital signs include temperature 97.8, heart rate 77, respiratory rate 18, blood pressure 132/81, mean 98. Appears in no acute distress. Lying on her left side. Supplemental oxygen in place. HEENT examination is grossly unremarkable. NECK: Supple. Full range of motion. No adenopathy or thyromegaly. CARDIOVASCULAR examination reveals regular rhythm and rate. S1, S2 normal. Heart sounds are distant. There is a soft systolic murmur. LUNGS: Reveal severely diminished breath sounds at both lung bases, right greater than left. A few scattered crackles. No rhonchi or wheezes. ABDOMEN: Soft. EXTREMITIES reveal significant edema. No cyanosis or clubbing. SKIN without rash. NEUROLOGIC examination is brief but nonfocal. LABS: Reviewed. White count 16.4, down from 25.1, hemoglobin 10.2, hematocrit 35.6, platelet count normal. PT 13.9, INR 1.4, PTT is 105.9 reflecting IV heparin. D-dimer was 5.84. Sodium 141, potassium 3.1, chloride 101, CO2 is 32, anion gap 8. BUN and creatinine were 25 and 0.55. Her troponin was 0.050. N terminal proBNP 19685. Total bilirubin 1.6. Urine appears to be showing small blood, large leukocyte esterase, 7 RBCs, 13 WBCs and 1 squamous cell. No bacteria noted. No chest x-ray. Chest CTA and venous Doppler are all reviewed and mentioned above. Medications are reviewed as mentioned above. ASSESSMENT: 1. Shortness of breath, multifactorial, in part related to underlying CHF with bilateral pleural effusions, right greater than left and bilateral nonocclusive pulmonary emboli. 2. Right lower extremity deep vein thrombosis. 3. Noncompliance with medical care. 4. History of rheumatoid arthritis. 5. Leukocytosis. 6. Anemia. 7. Hypokalemia. PLAN: The patient is currently on IV heparin. I agree with that treatment. She is being treated for her heart failure with appropriate medications including Coreg, Lasix, losartan, potassium and Aldactone. I personally do not think she needs any antibiotics. I do not believe there is any chance that she has pneumonia at this time. We will continue to follow. I will DC the antibiotics for now. Additional recommendations and suggestions are forthcoming. Prognosis is guarded given the fact that she has not seen a doctor in many years. MMODL / IJN: [id number] /
[2019-04-14] MEDS: FUROSEMIDE 10 MG/ML 4 ML VIAL IV SCH ×2 (06:08→17:20)
[2019-04-14] MEDS: CARVEDILOL 6.25 MG TAB PO SCH ×2 (06:17→17:46)
[2019-04-14 06:54] LABS: ALT 39 U/L (9-52); AST 37 U/L (14-36); African American GFR (CKD) >90 (>60 ml/min/1.73 sqM); Albumin 2.4 g/dL (3.5-5.0); Alkaline Phosphatase 79 U/L (38-126); Anion Gap 10 mmol/L; Blood Urea Nitrogen 22 mg/dL (7-17); Calcium 7.8 mg/dL (8.4-10.2); Carbon Dioxide 32 mmol/L (22-30); Chloride 99 mmol/L (98-107); Glucose 92 mg/dL (74-99); Magnesium 1.6 mg/dL (1.6-2.3); Potassium 3.1 mmol/L (3.5-5.1); Sodium 141 mmol/L (137-145); Total Bilirubin 0.8 mg/dL (0.2-1.3); Total Protein 5.4 g/dL (6.3-8.2)
[2019-04-14 06:57] LABS: Basophils % (A) 0 %; Eosinophils # (A) 0.1 k/uL (0-0.7); Eosinophils % (A) 0 %; HCT 35.7 % (34.0-46.0); HGB 10.5 gm/dL (11.4-16.0); Hypochromasia Marked; Lymphocytes % (A) 7 %; MCH 21.9 pg (25.0-35.0); MCHC 29.3 g/dL (31.0-37.0); Microcytosis Slight; Monocytes # (A) 0.5 k/uL (0-1.0); Monocytes % (A) 3 %; Neutrophils # (A) 13.2 k/uL (1.3-7.7); Neutrophils % (A) 89 %; Platelet Count 171 k/uL (150-450); Poikilocytosis Moderate; RBC 4.77 m/uL (3.80-5.40); RDW 15.9 % (11.5-15.5); WBC 14.9 k/uL (3.8-10.6)
[2019-04-14 07:07] LABS: Poikilocytosis (M) Present; Polychromasia Present
[2019-04-14] MEDS: IPRATROPIUM-ALBUTEROL 3 ML NEB INHALATION SCH ×3 (08:58→20:12)
[2019-04-14] MEDS: SPIRONOLACTONE 25 MG TAB PO SCH (09:41)
[2019-04-14] MEDS: LOSARTAN 50 MG TAB PO SCH (09:41)
[2019-04-14] MEDS: FAMOTIDINE 20 MG TAB PO SCH (09:41)
[2019-04-14] MEDS ORDERED: POTASSIUM CHLORIDE ER 20 MEQ TAB.ER PO STA ×2 (10:11→12:41)
[2019-04-14] MEDS ORDERED: MAGNESIUM SULFATE-D5W PMX 1 GM in DEXTROSE/WATER 1 100ML.BAG IVPB ONE (10:11)
[2019-04-14] MEDS ORDERED: LACTULOSE 20 GM/30 ML CUP PO ONE (13:01)
[2019-04-14] MEDS ORDERED: SODIUM FERRIC GLUCONAT-SUCROSE 125 MG in SODIUM CHLORIDE 0.9% 100 ML IVPB ONE (13:02)
--- NOTE | 2019-04-14 13:06 | P.PN ---
Subjective Progress Note Date: 04/14/19 Isabel Mooney is a 79 year old female patient of Dr. Mendez who presented to [facility] emergency room with a chief complaint of worsening shortness of breath over the past few days, generalized fatigue, lower extremity edema and weakness. Patient states that her symptoms started about 1 month ago but has been worsening significantly over the last few days. Otherwise she denies any complaints there was no fever or chills no headache or dizziness no chest pain no cough no nausea or vomiting no abdominal pain no diarrhea no burning was urination no frequency or urgency and no hematuria. Patient was evaluated in the emergency room she had a chest x-ray that revealed bilateral pleural effusion right more than left, laboratory data was significant for leukocytosis with a white blood count of 25,000 anemia with hemoglobin of 10.9 elevated d-dimer at 5.8 and slightly elevated troponin at 0.05 also BNP was elevated at 16,200 urine analysis revealed evidence of urinary tract infection with large leukocyte esterase and 13 white blood cells per high-power field. Patient was admitted to telemetry floor computed tomography scan angiogram of the chest was ordered to rule out pulmonary embolism results are still pending she was started on IV antibiotic Rocephin and Zithromax she was started on IV Lasix 40 mg every 12 hours echocardiogram was ordered pulmonary consultation and cardiology consultation were requested. 04/13/2019 patient had a CTA of the chest that was positive for bilateral nonocclusive PE without heart strain there is also bilateral pleural effusions right greater than left. I she was started on IV heparin. She remains on IV Lasix for her pleural effusions and CHF. And also is on antibiotics for UTI and possible pneumonia. Patient had an echo showing an EF of 20-25% mild left ventricle hypertrophy. Left atrium severely dilated. Severe pulmonary hypertension. Severe tricuspid regurgitation and moderate to severe mitral regurgitation. Patient does report improvement in her shortness of breath. She did have Dickerson catheter placed yesterday due to her being on the IV Lasix and having some difficulty ambulating. A there was some Dickerson catheter trauma she had some blood in her urine. Per nursing staff this is improving. And she does remain on IV heparin hemoglobin 10.2. Patient denies any chest pain. Denies any nausea or vomiting. Denies any bowel movement changes or urinary symptoms prior to Dickerson catheter being placed. 04/14/2019 patient is sitting up at bedside chair. She does report improvement in her shortness of breath. Venous Doppler is showing evidence of a right lower extremity DVT. She does remain on IV heparin for her DVT and PE. She was seen by pulmonary service and felt that pneumonia was unlikely and antibiotics were discontinued. Urine culture is negative. White count is down to 14.9. Hemoglobin is 10.5 potassium 3.1 magnesium 1.6 and iron is low at 9. Patient denies any chest pain or shortness breath. Denies any nausea or vomiting. His been 3 days since her last bowel movement. Objective - Vital Signs Vital signs: Vital Signs Temp 98.0 F 04/14/19 09:17 Pulse 74 04/14/19 11:57 Resp 16 04/14/19 11:57 BP 107/64 04/14/19 09:17 Pulse Ox 95 04/14/19 09:17 Intake & Output 04/13/19 04/14/19 04/14/19 18:59 06:59 18:59 Intake Total 264.42 300 300 Output Total 0468 123 0191 Balance -1535.58 -600 -900 Weight 44.3 kg 43.6 kg Intake: Intake, IV Titration 84.42 Amount Heparin Sod,Pork in 0.45% 84.42 NaCl 25,000 unit In 0.45 % NaCl 1 250ml.bag @ 18 UNITS/KG/HR 7.974 mls/hr IV .Q24H [facility] Rx#: [id number] Oral 180 300 300 Output: Urine 5771 [id number] Other: Voiding Method Indwelling Catheter Indwelling Catheter Indwelling Catheter - Labs CBC & Chem 7: 04/14/19 05:35 04/14/19 05:35 Labs: Abnormal Lab Results - Last 24 Hours (Table) 04/13/19 04/13/19 04/13/19 Range/Units 09:05 09:05 18:16 WBC (3.8-10.6) k/uL Hgb (11.4-16.0) gm/dL MCV (80.0-100.0) fL MCH (25.0-35.0) pg MCHC (31.0-37.0) g/dL RDW (11.5-15.5) % Neutrophils # (1.3-7.7) k/uL PT 13.9 H (9.0-12.0) sec INR 1.4 H (<1.2) APTT 49.7 H (22.0-30.0) sec Potassium (3.5-5.1) mmol/L Carbon Dioxide (22-30) mmol/L BUN (7-17) mg/dL Creatinine (0.52-1.04) mg/dL Calcium (8.4-10.2) mg/dL Iron 9 L (50-170) ug/dL Iron Saturation 3.24 L (12.00-45.00) AST (14-36) U/L Total Protein (6.3-8.2) g/dL Albumin (3.5-5.0) g/dL 04/14/19 04/14/19 04/14/19 Range/Units 05:35 05:35 05:35 WBC 14.9 H (3.8-10.6) k/uL Hgb 10.5 L (11.4-16.0) gm/dL MCV 75.0 L (80.0-100.0) fL MCH 21.9 L (25.0-35.0) pg MCHC 29.3 L (31.0-37.0) g/dL RDW 15.9 H (11.5-15.5) % Neutrophils # 13.2 H (1.3-7.7) k/uL PT (9.0-12.0) sec INR (<1.2) APTT 54.9 H (22.0-30.0) sec Potassium 3.1 L (3.5-5.1) mmol/L Carbon Dioxide 32 H (22-30) mmol/L BUN 22 H (7-17) mg/dL Creatinine 0.43 L (0.52-1.04) mg/dL Calcium 7.8 L (8.4-10.2) mg/dL Iron (50-170) ug/dL Iron Saturation (12.00-45.00) AST 37 H (14-36) U/L Total Protein 5.4 L (6.3-8.2) g/dL Albumin 2.4 L (3.5-5.0) g/dL Microbiology - Last 24 Hours (Table) 04/12/19 18:00 Urine Culture - Final Urine,Voided Assessment and Plan Assessment: 1. Shortness of breath: Multifocal secondary to bilateral pleural effusions, congestive heart failure exacerbation, and bilateral pulmonary embolus 2. Bilateral pulmonary emboli: CT of the chest shows bilateral nonocclusive PE without heart strain. Continue the IV heparin per protocol 3. Acute systolic congestive heart failure exacerbation: Continue IV Lasix. Cardiology is following. Echo showed an EF of 20-25%, mild left ventricle hypertrophy, left atrium severely dilated, severe pulmonary hypertension, severe tricuspid regurgitation, moderate to severe mitral regurgitation. Cardiology did add Aldactone, losartan and Coreg 4. Rheumatoid arthritis with severe joint deformity. Patient had been on methotrexate and prednisone previously. She stopped medications about 10 years ago per her decision and physician decision 5. UTI: Urine culture negative. Currently off of antibiotics 6. Leukocytosis possibly related to UTI. Per pulmonary service Dr. whaley. They've discontinued antibiotics. White count is trending down. 7. Essential hypertension: Medications added during this admission include losartan and Coreg 8. Hypokalemia: Patient will get K Dur 40 mEq by mouth 1. 9. Severe protein calorie malnutrition: Add ensure shakes 10. Iron deficiency anemia: Iron level low at 9. We'll give 1 dose of IV iron and start ferrous sulfate 325 mg twice a day. Monitor closely since patient did have some hematuria but this is not resolving is likely related to Dickerson catheter trauma. 11. Hypomagnesemia. Patient receiving magnesium supplement. Repeat labs in a.m. 12. Constipation we'll give Colace and lactulose Continue PT OT. His therapy is recommending subacute rehab at discharge. Also will consult Dr. Post for possible inpatient rehab GI prophylaxis Pepcid and DVT prophylaxis IV heparin I performed an examination of the patient and discussed their management with the physician Patient Companion. I have reviewed the Physician Patient Companion's notes and agree with the documented findings and plan of care
[2019-04-14] MEDS: HEPARIN SOD,PORK IN 0.45% NACL 25,000 UNIT in 0.45% NACL 1 250ML.BAG IV SCH (14:01)
--- NOTE | 2019-04-14 14:47 | P.CONS ---
History of Present Illness - Chief Complaint Medical debility - History of Present Illness I had the opportunity to see patient for inpatient rehab consultation with regard to medical debility. She was admitted to [facility] April 12 with increasing shortness of breath, fatigue, weakness. Seen by cardiology. Chest x-ray demonstrates bilateral effusions. CT angiogram demonstrates bilateral PE. Lower extremity Doppler positive for right leg and negative for left leg. PT reports moderate assistance bed mobility and standing. OT prescribed. Previous functional history as elicited from patient corroborative by and daughter: 79-year-old right-handed white female who is lives and 2 floor home with . Both retired. does the cooking laundry and driving and physically assist patient with bathing and dressing which is done for at least the last couple of months. Aggressive rheumatoid arthritis. Denies tobacco but admits to a glass of wine with dinner. PMD Dr. Mendez. Family history of mother with cancer. Review of Systems Review of systems: ENT: Denies sneezes or discharge. Eyes: Denies discharge or photophobia. Cardiac: Denies chest pain or palpitation. Pulmonary: Mild to moderate shortness of breath. Breast: Denies discharge or lumps. Gastrointestinal: Denies nausea, emesis, constipation, diarrhea. Genitourinary: Denies discharge or frequency. Musculoskeletal: Denies muscle or bone aches. Long-standing rheumatoid discomforts including both hands. Neurologic: Generalized weakness. Endocrine: Denies shakes or sweats. Oncology: Denies cancers. Dermatologic: Denies rash, itching, pruritus. ALLERGY/immunology: Denies sneezes, rashes. Past Medical History Additional Past Medical History / Comment(s): RA History of Any Multi-Drug Resistant Organisms: None Reported Past Surgical History: No Surgical Hx Reported Additional Past Surgical History / Comment(s): nosel poly removed Past Anesthesia/Blood Transfusion Reactions: No Reported Reaction Past Psychological History: No Psychological Hx Reported Smoking Status: Former smoker Past Alcohol Use History: None Reported Past Drug Use History: None Reported - Past Family History Mother Family Medical History: Cancer Additional Family Medical History / Comment(s): breast, Aunt had RA Medications and Allergies Home Medications Medication Instructions Recorded Confirmed Type No Known Home Medications 04/12/19 04/12/19 History Allergies Allergy/AdvReac Type Severity Reaction Status Date / Time No Known Allergies Allergy Verified 04/12/19 14:00 Physical Exam Vitals: Vital Signs Temp Pulse Pulse Resp BP Pulse Ox 04/14/19 13:40 84 04/14/19 13:31 80 04/14/19 11:57 74 16 04/14/19 09:17 98.0 F 74 16 107/64 95 04/14/19 09:14 84 04/14/19 09:01 76 04/14/19 08:00 77 18 04/14/19 04:00 77 18 127/85 94 L 04/14/19 03:47 67 18 04/13/19 23:17 74 18 04/13/19 23:14 74 18 105/59 93 L 04/13/19 20:00 97.5 F L 85 22 120/67 92 L 04/13/19 19:57 77 04/13/19 19:49 77 04/13/19 16:00 77 18 Intake and Output 04/13/19 04/14/19 04/14/19 22:59 06:59 14:59 Intake Total 0 300 540 Output Total 900 1200 Balance 0 -600 -660 Intake: Oral 0 300 540 Output: Urine 900 1200 Other: Voiding Method Indwelling Catheter Indwelling Catheter Indwelling Catheter Weight 43.6 kg Skin: Good color, texture, turgor. General: Medium build and comfortable appearance. Head: Normocephalic, atraumatic. Eyes: Symmetric. Pupils equal round. Ears: Symmetric. Hearing within normal limits. Mouth: Clear. Neck: Supple. Carotid without bruit. Cardiac: Regular rate and rhythm. Lungs: Clear anteriorly and posteriorly. Abdomen: Soft active nontender. Extremities: Decreased tone. Rheumatoid arthritic changes throughout especially hands, hands or in 80% fists. Neurological: Mental status: Alert, cooperative, pleasant. Cranial nerves: Symmetric facial tone and trapezius. Motor: Can actively elevate all 4 limbs but appears less than antigravity. Sensation: Intact throughout. DTRs: Symmetric and equal throughout. Mobility: Requires physical assistance for bed mobility. Results CBC & Chem 7: 04/14/19 05:35 04/14/19 05:35 Labs: Abnormal Lab Results - Last 24 Hours (Table) 04/13/19 04/13/19 04/14/19 Range/Units 09:05 18:16 05:35 WBC 14.9 H (3.8-10.6) k/uL Hgb 10.5 L (11.4-16.0) gm/dL MCV 75.0 L (80.0-100.0) fL MCH 21.9 L (25.0-35.0) pg MCHC 29.3 L (31.0-37.0) g/dL RDW 15.9 H (11.5-15.5) % Neutrophils # 13.2 H (1.3-7.7) k/uL APTT 49.7 H (22.0-30.0) sec Potassium (3.5-5.1) mmol/L Carbon Dioxide (22-30) mmol/L BUN (7-17) mg/dL Creatinine (0.52-1.04) mg/dL Calcium (8.4-10.2) mg/dL Iron 9 L (50-170) ug/dL Iron Saturation 3.24 L (12.00-45.00) AST (14-36) U/L Total Protein (6.3-8.2) g/dL Albumin (3.5-5.0) g/dL 04/14/19 04/14/19 Range/Units 05:35 05:35 WBC (3.8-10.6) k/uL Hgb (11.4-16.0) gm/dL MCV (80.0-100.0) fL MCH (25.0-35.0) pg MCHC (31.0-37.0) g/dL RDW (11.5-15.5) % Neutrophils # (1.3-7.7) k/uL APTT 54.9 H (22.0-30.0) sec Potassium 3.1 L (3.5-5.1) mmol/L Carbon Dioxide 32 H (22-30) mmol/L BUN 22 H (7-17) mg/dL Creatinine 0.43 L (0.52-1.04) mg/dL Calcium 7.8 L (8.4-10.2) mg/dL Iron (50-170) ug/dL Iron Saturation (12.00-45.00) AST 37 H (14-36) U/L Total Protein 5.4 L (6.3-8.2) g/dL Albumin 2.4 L (3.5-5.0) g/dL Microbiology - Last 24 Hours (Table) 04/12/19 18:00 Urine Culture - Final Urine,Voided Assessment and Plan (1) Acute pulmonary edema Current Visit: Yes Status: Acute Code(s): J81.0 - ACUTE PULMONARY EDEMA SNOMED Code(s): 99071450 Plan: Impression: 1. Medical debility. 2. Right leg DVT and bilateral PE. 3. Rheumatoid arthritis. Comments and plan: PT ongoing and OT prescribed. This time or a main concern is that patient has low endurance issues. Has apparently been discussed subacute rehab such as a [facility]. Sounds as though discharge is tentatively planned for Wednesday and effects the case, [facility] would be more appropriate than a [facility] [place].
--- NOTE | 2019-04-14 15:57 | P.PN ---
Subjective Progress Note Date: 04/14/19 Principal diagnosis: Bilateral pulmonary emboli, nonocclusive, and exacerbation of CHF, with bilateral pleural effusions, right greater than the left. Right lower extremity deep vein thrombosis On 04/14/2019 patient seen in follow-up on selective care unit, she is awake and alert, appears more awake today, conversant, appears more comfortable, she denies any distress, remains inseparable oxygen currently at 3 L of oxygen with a pulse ox of 95%, afebrile, hemodynamically stable, she states her breathing has improved, she is diuresing. She is in -2135 mL fluid balance over the last 24 hours. He is on IV Lasix at 40 mg every 12 hours, he is on heparin infusion, and apparently discharge planning is working on checking her coverage for oral anticoagulation, possibly Xarelto, with a plan to transition her over to oral DOAC likely tomorrow. No acute events overnight, no worsening shortness of breath, lower extremity edema is improving, today's labs have been reviewed, showing white blood cell, 14.9, hemoglobin of 10.5, serum sodium is 141, potassium is 3.1, chloride was 99, CO2 32, BUN was 22, creatinine is 0.43. Objective - Vital Signs Vital signs: Vital Signs Temp 98.0 F 04/14/19 09:17 Pulse 84 04/14/19 13:40 Resp 16 04/14/19 11:57 BP 107/64 04/14/19 09:17 Pulse Ox 95 04/14/19 09:17 Intake & Output 04/13/19 04/14/19 04/14/19 18:59 06:59 18:59 Intake Total 264.42 300 540 Output Total 3483 841 9372 Balance -1535.58 -600 -660 Weight 44.3 kg 43.6 kg 43.6 kg Intake: Intake, IV Titration 84.42 Amount Heparin Sod,Pork in 0.45% 84.42 NaCl 25,000 unit In 0.45 % NaCl 1 250ml.bag @ 18 UNITS/KG/HR 7.974 mls/hr IV .Q24H [facility] Rx#: [id number] Oral 180 300 540 Output: Urine 5792 [id number] Other: Voiding Method Indwelling Catheter Indwelling Catheter Indwelling Catheter - Exam GENERAL EXAM: Alert, pleasant, frail looking, 79-year-old white female, with chronic deformities of the hands comfortable in no apparent distress. HEAD: Normocephalic/atraumatic. EYES: Normal reaction of pupils, equal size. Conjunctiva pink, sclera white. NOSE: Clear with pink turbinates. THROAT: No erythema or exudates. NECK: No masses, no JVD, no thyroid enlargement, no adenopathy. CHEST: No chest wall deformity. Symmetrical expansion. LUNGS: Equal air entry with no crackles, wheeze, rhonchi or dullness. CVS: Regular rate and rhythm, normal S1 and S2, no gallops, no murmurs, no rubs ABDOMEN: Soft, nontender. No hepatosplenomegaly, normal bowel sounds, no guarding or rigidity. EXTREMITIES: No clubbing, mild edema, no cyanosis, 2+ pulses and upper and lower extremities. Ulnar drift of bilateral hands, and chronic contractures and swelling of the proximal interphalangeal joints MUSCULOSKELETAL: Muscle strength and tone normal. SPINE: No scoliosis or deformity SKIN: No rashes CENTRAL NERVOUS SYSTEM: Alert and oriented -3. No focal deficits, tone is normal in all 4 extremities. PSYCHIATRIC: Alert and oriented -3. Appropriate affect. Intact judgment and insight. - Labs CBC & Chem 7: 04/14/19 05:35 04/14/19 05:35 Labs: Abnormal Lab Results - Last 24 Hours (Table) 04/13/19 04/13/19 04/14/19 Range/Units 09:05 18:16 05:35 WBC 14.9 H (3.8-10.6) k/uL Hgb 10.5 L (11.4-16.0) gm/dL MCV 75.0 L (80.0-100.0) fL MCH 21.9 L (25.0-35.0) pg MCHC 29.3 L (31.0-37.0) g/dL RDW 15.9 H (11.5-15.5) % Neutrophils # 13.2 H (1.3-7.7) k/uL APTT 49.7 H (22.0-30.0) sec Potassium (3.5-5.1) mmol/L Carbon Dioxide (22-30) mmol/L BUN (7-17) mg/dL Creatinine (0.52-1.04) mg/dL Calcium (8.4-10.2) mg/dL Iron 9 L (50-170) ug/dL Iron Saturation 3.24 L (12.00-45.00) AST (14-36) U/L Total Protein (6.3-8.2) g/dL Albumin (3.5-5.0) g/dL 04/14/19 04/14/19 Range/Units 05:35 05:35 WBC (3.8-10.6) k/uL Hgb (11.4-16.0) gm/dL MCV (80.0-100.0) fL MCH (25.0-35.0) pg MCHC (31.0-37.0) g/dL RDW (11.5-15.5) % Neutrophils # (1.3-7.7) k/uL APTT 54.9 H (22.0-30.0) sec Potassium 3.1 L (3.5-5.1) mmol/L Carbon Dioxide 32 H (22-30) mmol/L BUN 22 H (7-17) mg/dL Creatinine 0.43 L (0.52-1.04) mg/dL Calcium 7.8 L (8.4-10.2) mg/dL Iron (50-170) ug/dL Iron Saturation (12.00-45.00) AST 37 H (14-36) U/L Total Protein 5.4 L (6.3-8.2) g/dL Albumin 2.4 L (3.5-5.0) g/dL Microbiology - Last 24 Hours (Table) 04/12/19 18:00 Urine Culture - Final Urine,Voided Assessment and Plan Plan: Assessment: #1. Dyspnea, multifactorial, related to acute exacerbation of CHF with systolic dysfunction, echocardiogram showed EF of 20-25%, with bilateral pleural effusions, and bilateral nonocclusive pulmonary emboli. #2. Severe pulmonary hypertension #3. Severe tricuspid regurgitation, moderate to severe mitral regurgitation and #4. History of rheumatoid arthritis with severe joint deformity, patient had been on methotrexate and prednisone, she had stopped taking her medications 10 years ago and stopped following her with her mgmt specialist, and she follows with the naturopathic physician #5. Urine tract infection #6. Hypertension #7. Iron deficiency anemia #8. Electrolyte abnormality, with hypokalemia, and hypomagnesemia Plan: We'll continue with heparin drip, patient is being checked for oral anticoagulation coverage, will likely transition tomorrow. Continue with diuresis, per protocol, hypokalemia and hypomagnesemia. Patient is breathing easier today, fluid volume status is improving. A virus have been discontinued, urine cultures have been negative, no fever or chills, we will continue to follow I performed a history & physical examination of the patient and discussed their management with my nurse practitioner, Irasema Simons. I reviewed the nurse practitioner's note and agree with the documented findings and plan of care. Lung sounds are positive forclear diminished breath sounds. The findings and the impression was discussed with the patient. I attest to the documentation by the nurse practitioner. Time with Patient: Less than 30
--- NOTE | 2019-04-14 18:19 | PN ---
PROGRESS NOTE DATE OF SERVICE: Mrs. Mooney came in with acute pulmonary edema/CHF, systolic, and also had pulmonary embolism. She is feeling a lot better with diuresis. She has been on heparin. We will tomorrow switch her to Xarelto or Eliquis, depending on what coverage she has. Her breathing has improved a lot. At some point in time she may need coronary angiography, but right now we will stabilize her. We will continue current medications, including Lasix, increase her activity, and see how she does. Overall prognosis appears guarded. Clinically patient is doing better. MMODL / IJN: [id number] /
[2019-04-14] MEDS: FERROUS SULFATE 325 MG TAB PO SCH (23:34)
[2019-04-14] MEDS: DOCUSATE 100 MG CAP PO SCH (23:34)
[2019-04-15] MEDS: IPRATROPIUM-ALBUTEROL 3 ML NEB INHALATION PRN ×2 (04:21→23:29)
[2019-04-15] MEDS: RIVAROXABAN 15 MG TAB PO SCH ×2 (06:35→17:49)
[2019-04-15] MEDS: CARVEDILOL 6.25 MG TAB PO SCH ×2 (06:35→17:20)
[2019-04-15] MEDS: FUROSEMIDE 10 MG/ML 4 ML VIAL IV SCH (06:35)
[2019-04-15 07:49] LABS: Basophils % (A) 0 %; Eosinophils % (A) 0 %; HCT 34.7 % (34.0-46.0); Hypochromasia Marked; Lymphocytes # (A) 0.9 k/uL (1.0-4.8); Lymphocytes % (A) 7 %; MCH 21.6 pg (25.0-35.0); MCHC 28.9 g/dL (31.0-37.0); MCV 74.7 fL (80.0-100.0); Mean Platelet Volume 8.2; Microcytosis Slight; Monocytes # (A) 0.4 k/uL (0-1.0); Monocytes % (A) 3 %; Neutrophils # (A) 11.5 k/uL (1.3-7.7); Neutrophils % (A) 89 %; Platelet Count 175 k/uL (150-450); Poikilocytosis Moderate; RBC 4.64 m/uL (3.80-5.40); RDW 15.9 % (11.5-15.5); WBC 12.9 k/uL (3.8-10.6)
[2019-04-15] MEDS: IPRATROPIUM-ALBUTEROL 3 ML NEB INHALATION SCH ×3 (07:58→19:07)
[2019-04-15 08:03] LABS: ALT 37 U/L (9-52); AST 38 U/L (14-36); African American GFR (CKD) >90 (>60 ml/min/1.73 sqM); Albumin 2.4 g/dL (3.5-5.0); Alkaline Phosphatase 78 U/L (38-126); Anion Gap 9 mmol/L; Blood Urea Nitrogen 26 mg/dL (7-17); Calcium 8.2 mg/dL (8.4-10.2); Carbon Dioxide 29 mmol/L (22-30); Chloride 101 mmol/L (98-107); Glucose 133 mg/dL (74-99); Magnesium 1.9 mg/dL (1.6-2.3); Sodium 139 mmol/L (137-145); Total Bilirubin 0.8 mg/dL (0.2-1.3); Total Protein 5.5 g/dL (6.3-8.2)
[2019-04-15] MEDS: FERROUS SULFATE 325 MG TAB PO SCH ×2 (08:33→22:35)
[2019-04-15] MEDS: SPIRONOLACTONE 25 MG TAB PO SCH (08:33)
[2019-04-15] MEDS: FAMOTIDINE 20 MG TAB PO SCH (08:33)
[2019-04-15] MEDS: POTASSIUM CHLORIDE ER 20 MEQ TAB.ER PO SCH (08:33)
[2019-04-15] MEDS: DOCUSATE 100 MG CAP PO SCH ×2 (08:33→22:35)
[2019-04-15] MEDS: LOSARTAN 50 MG TAB PO SCH (10:14)
--- NOTE | 2019-04-15 11:59 | PN ---
PROGRESS NOTE Mrs. Mooney is a 79-year-old lady with pulmonary embolism and heart failure, probable cardiomyopathy. She is in sinus rhythm, had a restless night because she did not sleep. She did not have any pain or shortness of breath, but she was distressed. She is feeling better somewhat. Her blood pressure is low. I am going to hold losartan 50 mg and instead try 25 mg at bedtime. Vitals are stable. S1-S2 heard normally. Short systolic murmur noted. Lungs reveals diminished air entry. Abdomen is soft. Lower extremities reveal diminished pulses. Edema has resolved. This patient has ejection fraction of less than 30% with LV dysfunction globally and also pulmonary embolism. She is being heparinized and will switch over to Xarelto. Same medical regimen to be continued. Her hospitalist will address the issue of insomnia and fatigue. MMODL / IJN: [id number] /
--- NOTE | 2019-04-15 14:11 | P.PN ---
Subjective Progress Note Date: 04/15/19 Principal diagnosis: Bilateral pulmonary emboli, right lower extremity DVT, and exacerbation of congestive heart failure with bilateral effusions right greater than left. Patient is seen today 04/15/2019 in follow-up on the selective care unit. She is currently resting quite comfortably in bed. No worsening shortness of breath cough or congestion. No hemoptysis. Maintaining O2 saturations in the mid 90s on 3 L/m per nasal cannula. She's afebrile. Hemodynamically stable. Urine culture reveals no growth. White count 12.9. Hemoglobin 10.0. Creatinine 0.57. She remains on DuoNeb inhalations, diuretics, and anticoagulation with Xarelto. Objective - Vital Signs Vital signs: Vital Signs Temp 98.0 F 04/15/19 12:00 Pulse 76 04/15/19 13:16 Resp 20 04/15/19 12:00 BP 99/63 04/15/19 12:00 Pulse Ox 95 04/15/19 12:00 Intake & Output 04/14/19 04/15/19 04/15/19 18:59 06:59 18:59 Intake Total 780 120 Output Total 2900 300 Balance -2120 -180 Weight 43.6 kg 44 kg Intake: Oral 780 120 Output: Urine 2900 300 Uretheral (Dickerson) 300 Other: Voiding Method Indwelling Catheter Indwelling Catheter # Voids 1 # Bowel Movements 1 - Exam GENERAL EXAM: Alert, pleasant, frail looking, 79-year-old white female, with chronic deformities of the hands comfortable in no apparent distress. On 3 L nasal cannula. HEAD: Normocephalic/atraumatic. EYES: Normal reaction of pupils, equal size. Conjunctiva pink, sclera white. NOSE: Clear with pink turbinates. THROAT: No erythema or exudates. NECK: No masses, no JVD, no thyroid enlargement, no adenopathy. CHEST: No chest wall deformity. Symmetrical expansion. LUNGS: Equal air entry with basilar crackles. CVS: Regular rate and rhythm, normal S1 and S2, no gallops, no murmurs, no rubs ABDOMEN: Soft, nontender. No hepatosplenomegaly, normal bowel sounds, no guarding or rigidity. EXTREMITIES: No clubbing, mild edema, no cyanosis, 2+ pulses and upper and lower extremities. Ulnar drift of bilateral hands, and chronic contractures and swe lling of the proximal interphalangeal joints MUSCULOSKELETAL: Muscle strength and tone normal. SPINE: No scoliosis or deformity SKIN: No rashes CENTRAL NERVOUS SYSTEM: No focal deficits, tone is normal in all 4 extremities. PSYCHIATRIC: Alert and oriented -3. Appropriate affect. Intact judgment and insight. - Labs CBC & Chem 7: 04/15/19 06:22 04/15/19 06:22 Labs: Abnormal Lab Results - Last 24 Hours (Table) 04/13/19 04/15/19 04/15/19 Range/Units 12:38 06:22 06:22 WBC 12.9 H (3.8-10.6) k/uL Hgb 10.0 L (11.4-16.0) gm/dL MCV 74.7 L (80.0-100.0) fL MCH 21.6 L (25.0-35.0) pg MCHC 28.9 L (31.0-37.0) g/dL RDW 15.9 H (11.5-15.5) % Neutrophils # 11.5 H (1.3-7.7) k/uL Lymphocytes # 0.9 L (1.0-4.8) k/uL BUN 26 H (7-17) mg/dL Glucose 133 H (74-99) mg/dL Calcium 8.2 L (8.4-10.2) mg/dL AST 38 H (14-36) U/L Total Protein 5.5 L (6.3-8.2) g/dL Albumin 2.4 L (3.5-5.0) g/dL Stool Occult Blood Positive H (Negative) Assessment and Plan Assessment: Assessment: #1. Dyspnea, multifactorial, related to acute exacerbation of CHF with systolic dysfunction, echocardiogram showed EF of 20-25%, with bilateral pleural effusions, and bilateral nonocclusive pulmonary emboli. #2. Severe pulmonary hypertension #3. Severe tricuspid regurgitation, moderate to severe mitral regurgitation and #4. 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 Urine tract infection #6. Hypertension #7. Iron deficiency anemia #8. Electrolyte abnormality, with hypokalemia, and hypomagnesemia Plan: The patient was seen and evaluated by Dr. Quesada. She has been transitioned to [facility]. She is stable from the pulmonary standpoint. We'll see the patient on as-needed basis. I, the cosigning physician, performed a history & physical examination of the patient. Lungs sounds with faint crackles in the posterior bases. Maintaining good O2 saturations in the 90s on 3 L/m per nasal cannula. I discussed the assessment and plan of care with my nurse practitioner, Lanie Oseguera. I attest to the above note as dictated by her.
[2019-04-15] MEDS: FUROSEMIDE 40 MG TAB PO SCH (17:20)
[2019-04-15] MEDS ORDERED: LOSARTAN 25 MG TAB PO SCH (21:00)
[2019-04-16] MEDS: CARVEDILOL 6.25 MG TAB PO SCH (06:55)
[2019-04-16] MEDS: RIVAROXABAN 15 MG TAB PO SCH ×2 (06:55→16:20)
[2019-04-16 07:05] LABS: Anisocytosis Slight; Basophils % (A) 0 %; Eosinophils % (A) 0 %; HCT 35.4 % (34.0-46.0); HGB 10.2 gm/dL (11.4-16.0); Hypochromasia Marked; Lymphocytes # (A) 1.1 k/uL (1.0-4.8); Lymphocytes % (A) 8 %; MCH 21.1 pg (25.0-35.0); MCHC 28.9 g/dL (31.0-37.0); MCV 72.9 fL (80.0-100.0); Microcytosis Moderate; Monocytes # (A) 0.4 k/uL (0-1.0); Monocytes % (A) 3 %; Neutrophils # (A) 11.4 k/uL (1.3-7.7); Neutrophils % (A) 87 %; Platelet Count 216 k/uL (150-450); Poikilocytosis Slight; RBC 4.86 m/uL (3.80-5.40); RDW 16.9 % (11.5-15.5); WBC 13.1 k/uL (3.8-10.6)
[2019-04-16 07:19] LABS: ALT 37 U/L (9-52); AST 36 U/L (14-36); African American GFR (CKD) >90 (>60 ml/min/1.73 sqM); Albumin 2.7 g/dL (3.5-5.0); Alkaline Phosphatase 84 U/L (38-126); Anion Gap 6 mmol/L; Blood Urea Nitrogen 26 mg/dL (7-17); Calcium 8.6 mg/dL (8.4-10.2); Carbon Dioxide 31 mmol/L (22-30); Chloride 101 mmol/L (98-107); Glucose 140 mg/dL (74-99); Magnesium 2.1 mg/dL (1.6-2.3); Sodium 138 mmol/L (137-145); Total Bilirubin 0.7 mg/dL (0.2-1.3); Total Protein 5.8 g/dL (6.3-8.2)
[2019-04-16] MEDS: FERROUS SULFATE 325 MG TAB PO SCH ×2 (07:48→16:20)
[2019-04-16] MEDS: POTASSIUM CHLORIDE ER 20 MEQ TAB.ER PO SCH (07:48)
[2019-04-16] MEDS: FAMOTIDINE 20 MG TAB PO SCH (07:48)
[2019-04-16] MEDS: DOCUSATE 100 MG CAP PO SCH ×2 (07:48→16:20)
[2019-04-16] MEDS: IPRATROPIUM-ALBUTEROL 3 ML NEB INHALATION SCH ×3 (08:46→20:43)
[2019-04-16] MEDS: FUROSEMIDE 40 MG TAB PO SCH (09:41)
[2019-04-16] MEDS: SPIRONOLACTONE 25 MG TAB PO SCH (10:24)
--- NOTE | 2019-04-16 11:29 | PN ---
PROGRESS NOTE Mrs. Mooney actually feels a little better today. Her breathing is easier, but at night in the evening she feels more short of breath. She has not slept very well. Vitals are stable. There is JVD 1 cm. No carotid bruit. S1-S2 heard normally. Short systolic murmur noted. Lungs reveal rales on both bases. Abdomen and lower extremity exam is unchanged. This lady has rheumatoid arthritis, has a ejection fraction of less than 30% and pulmonary embolism for which she is on anticoagulation. I am recommending that we increase IV Lasix for 24 hours to 20 mg q.6 hours IV push, Ambien 5 mg at bedtime and hopefully this will give her some restful night tonight and see how she does tomorrow. MMODL / IJN: [id number] /
--- NOTE | 2019-04-16 11:35 | P.PN ---
Subjective Progress Note Date: 04/16/19 Isabel Mooney is a 79 year old female patient of Dr. Mendez who presented to [facility] emergency room with a chief complaint of worsening shortness of breath over the past few days, generalized fatigue, lower extremity edema and weakness. Patient states that her symptoms started about 1 month ago but has been worsening significantly over the last few days. Otherwise she denies any complaints there was no fever or chills no headache or dizziness no chest pain no cough no nausea or vomiting no abdominal pain no diarrhea no burning was urination no frequency or urgency and no hematuria. Patient was evaluated in the emergency room she had a chest x-ray that revealed bilateral pleural effusion right more than left, laboratory data was significant for leukocytosis with a white blood count of 25,000 anemia with hemoglobin of 10.9 elevated d-dimer at 5.8 and slightly elevated troponin at 0.05 also BNP was elevated at 16,200 urine analysis revealed evidence of urinary tract infection with large leukocyte esterase and 13 white blood cells per high-power field. Patient was admitted to telemetry floor computed tomography scan angiogram of the chest was ordered to rule out pulmonary embolism results are still pending she was started on IV antibiotic Rocephin and Zithromax she was started on IV Lasix 40 mg every 12 hours echocardiogram was ordered pulmonary consultation and cardiology consultation were requested. 04/13/2019 patient had a CTA of the chest that was positive for bilateral nonocclusive PE without heart strain there is also bilateral pleural effusions right greater than left. I she was started on IV heparin. She remains on IV Lasix for her pleural effusions and CHF. And also is on antibiotics for UTI and possible pneumonia. Patient had an echo showing an EF of 20-25% mild left ventricle hypertrophy. Left atrium severely dilated. Severe pulmonary hypertension. Severe tricuspid regurgitation and moderate to severe mitral regurgitation. Patient does report improvement in her shortness of breath. She did have Dickerson catheter placed yesterday due to her being on the IV Lasix and having some difficulty ambulating. A there was some Dickerson catheter trauma she had some blood in her urine. Per nursing staff this is improving. And she does remain on IV heparin hemoglobin 10.2. Patient denies any chest pain. Denies any nausea or vomiting. Denies any bowel movement changes or urinary symptoms prior to Dickerson catheter being placed. 04/14/2019 patient is sitting up at bedside chair. She does report improvement in her shortness of breath. Venous Doppler is showing evidence of a right lower extremity DVT. She does remain on IV heparin for her DVT and PE. She was seen by pulmonary service and felt that pneumonia was unlikely and antibiotics were discontinued. Urine culture is negative. White count is down to 14.9. Hemoglobin is 10.5 potassium 3.1 magnesium 1.6 and iron is low at 9. Patient denies any chest pain or shortness breath. Denies any nausea or vomiting. His been 3 days since her last bowel movement. On 04/16/2019 patient was seen and examined on the medical floor she is alert and oriented 3 in no apparent distress there is no fever or chills no headache or dizziness no chest pain no shortness of breath no cough no nausea or vomiting no abdominal pain no diarrhea and no urinary symptoms Objective - Vital Signs Vital signs: Vital Signs Temp 97.1 F L 04/16/19 08:00 Pulse 78 04/16/19 08:56 Resp 16 04/16/19 08:47 BP 111/72 04/16/19 08:00 Pulse Ox 97 04/16/19 08:47 Intake & Output 04/15/19 04/16/19 04/16/19 18:59 06:59 18:59 Intake Total 220 100 Output Total 700 Balance -480 100 Weight 43.5 kg Intake: Oral 220 100 Output: Urine 300 Uretheral (Dickerson) 300 Urine/Stool Mix 400 Other: Voiding Method Bedside Commode Bedside Commode # Voids 1 0 # Bowel Movements 0 - Exam In general patient is alert and oriented 3 in no apparent distress HEENT head normocephalic and atraumatic Neck is supple no JVD no goiter no lymphadenopathy Chest exam reveals a few scattered crackles no wheezing Cardiac exam reveals regular heart sounds no gallops no murmurs Abdomen is soft nontender no organomegaly with normal bowel sounds Extremity exam reveals no edema no cyanosis or clubbing, there is severe joint deformity in hands Neurological examination reveals no gross focal deficit - Labs CBC & Chem 7: 04/16/19 06:32 04/16/19 06:32 Labs: Abnormal Lab Results - Last 24 Hours (Table) 04/16/19 04/16/19 Range/Units 06:32 06:32 WBC 13.1 H (3.8-10.6) k/uL Hgb 10.2 L (11.4-16.0) gm/dL MCV 72.9 L (80.0-100.0) fL MCH 21.1 L (25.0-35.0) pg MCHC 28.9 L (31.0-37.0) g/dL RDW 16.9 H (11.5-15.5) % Neutrophils # 11.4 H (1.3-7.7) k/uL Carbon Dioxide 31 H (22-30) mmol/L BUN 26 H (7-17) mg/dL Glucose 140 H (74-99) mg/dL Total Protein 5.8 L (6.3-8.2) g/dL Albumin 2.7 L (3.5-5.0) g/dL Assessment and Plan Plan: 1. Shortness of breath: Multifocal secondary to bilateral pleural effusions, congestive heart failure exacerbation, and bilateral pulmonary embolus 2. Bilateral pulmonary emboli: CT of the chest shows bilateral nonocclusive PE without heart strain. Continue the IV heparin per protocol 3. Acute systolic congestive heart failure exacerbation: Continue IV Lasix. Cardiology is following. Echo showed an EF of 20-25%, mild left ventricle hypertrophy, left atrium severely dilated, severe pulmonary hypertension, severe tricuspid regurgitation, moderate to severe mitral regurgitation. Cardiology did add Aldactone, losartan and Coreg 4. Rheumatoid arthritis with severe joint deformity. Patient had been on met hotrexate and prednisone previously. She stopped medications about 10 years ago per her decision and physician decision 5. UTI: Urine culture negative. Currently off of antibiotics 6. Leukocytosis possibly related to UTI. Per pulmonary service Dr. whaley. They've discontinued antibiotics. White count is trending down. 7. Essential hypertension: Medications added during this admission include losartan and Coreg 8. Hypokalemia: Patient will get K Dur 40 mEq by mouth 1. 9. Severe protein calorie malnutrition: Add ensure shakes 10. Iron deficiency anemia: Iron level low at 9. We'll give 1 dose of IV iron and start ferrous sulfate 325 mg twice a day. Monitor closely since patient did have some hematuria but this is not resolving is likely related to Dickerson catheter trauma. 11. Hypomagnesemia. Patient receiving magnesium supplement. Repeat labs in a.m. 12. Constipation we'll give Colace and lactulose Continue PT OT. His therapy is recommending subacute rehab at discharge. Also will consult Dr. Post for possible inpatient rehab GI prophylaxis Pepcid and DVT prophylaxis IV heparin
--- NOTE | 2019-04-16 11:37 | P.PN ---
Subjective Progress Note Date: 04/15/19 Isabel Mooney is a 79 year old female patient of Dr. Mendez who presented to [facility] emergency room with a chief complaint of worsening shortness of breath over the past few days, generalized fatigue, lower extremity edema and weakness. Patient states that her symptoms started about 1 month ago but has been worsening significantly over the last few days. Otherwise she denies any complaints there was no fever or chills no headache or dizziness no chest pain no cough no nausea or vomiting no abdominal pain no diarrhea no burning was urination no frequency or urgency and no hematuria. Patient was evaluated in the emergency room she had a chest x-ray that revealed bilateral pleural effusion right more than left, laboratory data was significant for leukocytosis with a white blood count of 25,000 anemia with hemoglobin of 10.9 elevated d-dimer at 5.8 and slightly elevated troponin at 0.05 also BNP was elevated at 16,200 urine analysis revealed evidence of urinary tract infection with large leukocyte esterase and 13 white blood cells per high-power field. Patient was admitted to telemetry floor computed tomography scan angiogram of the chest was ordered to rule out pulmonary embolism results are still pending she was started on IV antibiotic Rocephin and Zithromax she was started on IV Lasix 40 mg every 12 hours echocardiogram was ordered pulmonary consultation and cardiology consultation were requested. 04/13/2019 patient had a CTA of the chest that was positive for bilateral nonocclusive PE without heart strain there is also bilateral pleural effusions right greater than left. I she was started on IV heparin. She remains on IV Lasix for her pleural effusions and CHF. And also is on antibiotics for UTI and possible pneumonia. Patient had an echo showing an EF of 20-25% mild left ventricle hypertrophy. Left atrium severely dilated. Severe pulmonary hypertension. Severe tricuspid regurgitation and moderate to severe mitral regurgitation. Patient does report improvement in her shortness of breath. She did have Dickerson catheter placed yesterday due to her being on the IV Lasix and having some difficulty ambulating. A there was some Dickerson catheter trauma she had some blood in her urine. Per nursing staff this is improving. And she does remain on IV heparin hemoglobin 10.2. Patient denies any chest pain. Denies any nausea or vomiting. Denies any bowel movement changes or urinary symptoms prior to Dickerson catheter being placed. 04/14/2019 patient is sitting up at bedside chair. She does report improvement in her shortness of breath. Venous Doppler is showing evidence of a right lower extremity DVT. She does remain on IV heparin for her DVT and PE. She was seen by pulmonary service and felt that pneumonia was unlikely and antibiotics were discontinued. Urine culture is negative. White count is down to 14.9. Hemoglobin is 10.5 potassium 3.1 magnesium 1.6 and iron is low at 9. Patient denies any chest pain or shortness breath. Denies any nausea or vomiting. His been 3 days since her last bowel movement. On 04/15/2019 patient was seen and examined on the medical floor she is alert and oriented 3 in no apparent distress there is no fever or chills no headache or dizziness no chest pain no shortness of breath no cough no nausea or vomiting no abdominal pain no diarrhea and no urinary symptoms Objective - Vital Signs Vital signs: Vital Signs Temp 98.0 F 04/15/19 12:00 Pulse 77 04/15/19 12:00 Resp 20 04/15/19 12:00 BP 99/63 04/15/19 12:00 Pulse Ox 95 04/15/19 12:00 Intake & Output 04/14/19 04/15/19 04/15/19 18:59 06:59 18:59 Intake Total 780 120 Output Total 2900 300 Balance -2120 -180 Weight 43.6 kg 44 kg Intake: Oral 780 120 Output: Urine 2900 300 Uretheral (Dickerson) 300 Other: Voiding Method Indwelling Catheter Indwelling Catheter # Voids 1 # Bowel Movements 1 - Exam In general patient is alert and oriented 3 in no apparent distress HEENT head normocephalic and atraumatic Neck is supple no JVD no goiter no lymphadenopathy Chest exam reveals a few scattered crackles no wheezing Cardiac exam reveals regular heart sounds no gallops no murmurs Abdomen is soft nontender no organomegaly with normal bowel sounds Extremity exam reveals no edema no cyanosis or clubbing, there is severe joint deformity in hands Neurological examination reveals no gross focal deficit - Labs CBC & Chem 7: 04/16/19 06:32 04/16/19 06:32 Labs: Abnormal Lab Results - Last 24 Hours (Table) 04/13/19 04/15/19 04/15/19 Range/Units 12:38 06:22 06:22 WBC 12.9 H (3.8-10.6) k/uL Hgb 10.0 L (11.4-16.0) gm/dL MCV 74.7 L (80.0-100.0) fL MCH 21.6 L (25.0-35.0) pg MCHC 28.9 L (31.0-37.0) g/dL RDW 15.9 H (11.5-15.5) % Neutrophils # 11.5 H (1.3-7.7) k/uL Lymphocytes # 0.9 L (1.0-4.8) k/uL BUN 26 H (7-17) mg/dL Glucose 133 H (74-99) mg/dL Calcium 8.2 L (8.4-10.2) mg/dL AST 38 H (14-36) U/L Total Protein 5.5 L (6.3-8.2) g/dL Albumin 2.4 L (3.5-5.0) g/dL Stool Occult Blood Positive H (Negative) Assessment and Plan Plan: 1. Shortness of breath: Multifocal secondary to bilateral pleural effusions, congestive heart failure exacerbation, and bilateral pulmonary embolus 2. Bilateral pulmonary emboli: CT of the chest shows bilateral nonocclusive PE without heart strain. Continue the IV heparin per protocol 3. Acute systolic congestive heart failure exacerbation: Continue IV Lasix. Cardiology is following. Echo showed an EF of 20-25%, mild left ventricle hypertrophy, left atrium severely dilated, severe pulmonary hypertension, severe tricuspid regurgitation, moderate to severe mitral regurgitation. Cardiology did add Aldactone, losartan and Coreg 4. Rheumatoid arthritis with severe joint deformity. Patient had been on methotrexate and prednisone previously. She stopped medications about 10 years ago per her decision and physician decision 5. UTI: Urine culture negative. Currently off of antibiotics 6. Leukocytosis possibly related to UTI. Per pulmonary service Dr. whaley. They've discontinued antibiotics. White count is trending down. 7. Essential hypertension: Medications added during this admission include losartan and Coreg 8. Hypokalemia: Patient will get K Dur 40 mEq by mouth 1. 9. Severe protein calorie malnutrition: Add ensure shakes 10. Iron deficiency anemia: Iron level low at 9. We'll give 1 dose of IV iron and start ferrous sulfate 325 mg twice a day. Monitor closely since patient did have some hematuria but this is not resolving is likely related to Dickerson catheter trauma. 11. Hypomagnesemia. Patient receiving magnesium supplement. Repeat labs in a.m. 12. Constipation we'll give Colace and lactulose Continue PT OT. His therapy is recommending subacute rehab at discharge. Also will consult Dr. Post for possible inpatient rehab GI prophylaxis Pepcid and DVT prophylaxis IV heparin
[2019-04-16] MEDS: FUROSEMIDE 10 MG/ML 2 ML VIAL IV SCH ×2 (12:02→16:19)
[2019-04-16] MEDS ORDERED: POTASSIUM CHLORIDE ER 20 MEQ TAB.ER PO ONE (12:30)
[2019-04-16] MEDS: CARVEDILOL 3.125 MG TAB PO SCH (16:20)
[2019-04-16] MEDS ORDERED: ZOLPIDEM 5 MG TAB PO SCH (20:00)
[2019-04-16] MEDS ORDERED: LOSARTAN 25 MG TAB PO SCH (20:00)
[2019-04-16] MEDS ORDERED: MELATONIN 5 MG TABLET PO SCH (21:00)
[2019-04-17] MEDS: MELATONIN 5 MG TABLET PO SCH ×2 (00:50→00:51)
[2019-04-17] MEDS: FUROSEMIDE 10 MG/ML 2 ML VIAL IV SCH ×3 (00:52→11:49)
[2019-04-17] MEDS: RIVAROXABAN 15 MG TAB PO SCH ×2 (06:36→15:30)
[2019-04-17] MEDS: CARVEDILOL 3.125 MG TAB PO SCH ×2 (06:36→15:30)
[2019-04-17] MEDS: DOCUSATE 100 MG CAP PO SCH ×2 (06:36→15:30)
[2019-04-17] MEDS: FERROUS SULFATE 325 MG TAB PO SCH ×2 (06:36→15:31)
[2019-04-17 07:41] LABS: Anisocytosis Slight; Basophils % (A) 0 %; Eosinophils # (A) 0.1 k/uL (0-0.7); Eosinophils % (A) 1 %; HCT 34.2 % (34.0-46.0); HGB 9.8 gm/dL (11.4-16.0); Hypochromasia Marked; Lymphocytes # (A) 0.8 k/uL (1.0-4.8); Lymphocytes % (A) 7 %; MCH 21.1 pg (25.0-35.0); MCHC 28.8 g/dL (31.0-37.0); MCV 73.2 fL (80.0-100.0); Mean Platelet Volume 8.5; Microcytosis Moderate; Monocytes # (A) 0.3 k/uL (0-1.0); Monocytes % (A) 3 %; Neutrophils % (A) 89 %; Platelet Count 176 k/uL (150-450); Poikilocytosis Slight; RBC 4.66 m/uL (3.80-5.40); WBC 11.2 k/uL (3.8-10.6)
[2019-04-17] MEDS: IPRATROPIUM-ALBUTEROL 3 ML NEB INHALATION SCH ×2 (07:44→11:06)
[2019-04-17 07:54] LABS: ALT 45 U/L (9-52); AST 40 U/L (14-36); African American GFR (CKD) >90 (>60 ml/min/1.73 sqM); Albumin 2.5 g/dL (3.5-5.0); Alkaline Phosphatase 82 U/L (38-126); Anion Gap 10 mmol/L; Blood Urea Nitrogen 22 mg/dL (7-17); Calcium 8.5 mg/dL (8.4-10.2); Carbon Dioxide 27 mmol/L (22-30); Chloride 103 mmol/L (98-107); Glucose 102 mg/dL (74-99); Potassium 3.6 mmol/L (3.5-5.1); Sodium 140 mmol/L (137-145); Total Bilirubin 0.7 mg/dL (0.2-1.3); Total Protein 5.7 g/dL (6.3-8.2)
[2019-04-17] MEDS: FAMOTIDINE 20 MG TAB PO SCH (08:57)
[2019-04-17] MEDS: POTASSIUM CHLORIDE ER 20 MEQ TAB.ER PO SCH (08:58)
[2019-04-17] MEDS: SPIRONOLACTONE 25 MG TAB PO SCH (09:03)
[2019-04-17 11:13] VITALS: BMI 16.9
[2019-04-17 12:58] VITALS: TEMP 97.6
--- NOTE | 2019-04-17 15:14 | P.DS ---
Providers Date of admission: 04/13/19 13:16 Expected date of discharge: 04/17/19 Attending physician: Vadim Mosley Consults: 04/12/19 15:57 Consult Physician Routine Consulting Provider: [facility] Consult Reason/Comments: Pulmonary edema Do you want consulting provider notified?: Yes 04/12/19 16:56 Consult Physician Routine Consulting Provider: Yo Linder Consult Reason/Comments: Dyspnea Do you want consulting provider notified?: Yes 04/14/19 13:05 Consult Physician Routine Consulting Provider: Garth Jeong Consult Reason/Comments: possible inpatient rehab Do you want consulting provider notified?: Yes Primary care physician: Piper Mendez Hospital Course: Discharge diagnosis 1. Shortness of breath: Multifocal secondary to bilateral pleural effusions, congestive heart failure exacerbation, and bilateral pulmonary embolus 2. Bilateral pulmonary emboli: CT of the chest shows bilateral nonocclusive PE without heart strain. Patient has been transitioned to xeralto. 3. Acute systolic congestive heart failure exacerbation: Continue IV Lasix. Cardiology is following. Echo showed an EF of 20-25%, mild left ventricle hypertrophy, left atrium severely dilated, severe pulmonary hypertension, severe tricuspid regurgitation, moderate to severe mitral regurgitation. Cardiology did add Aldactone, losartan and Coreg. Patient has been cleared for discharge from cardiology standpoint. Patient to be discharged on Lasix 40 mg morning and 20 at night 4. Rheumatoid arthritis with severe joint deformity. Patient had been on methotrexate and prednisone previously. She stopped medications about 10 years ago per her decision and physician decision 5. UTI: Urine culture negative. Patient will be DC'd on Ceftin for 7 days 6. Leukocytosis possibly related to UTI. Per pulmonary service Dr. whaley. They've discontinued antibiotics. White count is trending down. 7. Essential hypertension: Medications added during this admission include losartan and Coreg 8. Hypokalemia: Patient will get K Dur 40 mEq by mouth 1. 9. Severe protein calorie malnutrition: Add ensure shakes 10. Iron deficiency anemia: Iron level low at 9. We'll give 1 dose of IV iron and start ferrous sulfate 325 mg twice a day. Monitor closely since patient did have some hematuria but this is not resolving is likely related to Dickerson catheter trauma. 11. Hypomagnesemia. Patient receiving magnesium supplement. Repeat labs in a.m. 12. Constipation we'll give Colace and lactulose Hospital course Isabel Mooney is a 79 year old female patient of Dr. Mendez who presented to [facility] emergency room with a chief complaint of worsening shortness of breath over the past few days, generalized fatigue, lower extremity edema and weakness. Patient states that her symptoms started about 1 month ago but has been worsening significantly over the last few days. Otherwise she denies any complaints there was no fever or chills no headache or dizziness no chest pain no cough no nausea or vomiting no abdominal pain no diarrhea no burning was urination no frequency or urgency and no hematuria. Patient was evaluated in the emergency room she had a chest x-ray that revealed bilateral pleural effusion right more than left, laboratory data was significant for leukocytosis with a white blood count of 25,000 anemia with hemoglobin of 10.9 elevated d-dimer at 5.8 and slightly elevated troponin at 0.05 also BNP was elevated at 16,200 urine analysis revealed evidence of urinary tract infection with large leukocyte esterase and 13 white blood cells per high-power field. Patient was admitted to telemetry floor computed tomography scan angiogram of the chest was ordered to rule out pulmonary embolism results are still pending she was started on IV antibiotic Rocephin and Zithromax she was started on IV Lasix 40 mg every 12 hours echocardiogram was ordered pulmonary consultation and cardiology consultation were requested. 04/13/2019 patient had a CTA of the chest that was positive for bilateral nonocclusive PE without heart strain there is also bilateral pleural effusions right greater than left. I she was started on IV heparin. She remains on IV Lasix for her pleural effusions and CHF. And also is on antibiotics for UTI and possible pneumonia. Patient had an echo showing an EF of 20-25% mild left ventricle hypertrophy. Left atrium severely dilated. Severe pulmonary hypertension. Severe tricuspid regurgitation and moderate to severe mitral regu rgitation. Patient does report improvement in her shortness of breath. She did have Dickerson catheter placed yesterday due to her being on the IV Lasix and having some difficulty ambulating. A there was some Dickerson catheter trauma she had some blood in her urine. Per nursing staff this is improving. And she does remain on IV heparin hemoglobin 10.2. Patient denies any chest pain. Denies any carey sea or vomiting. Denies any bowel movement changes or urinary symptoms prior to Dickerson catheter being placed. 04/14/2019 patient is sitting up at bedside chair. She does report improvement in her shortness of breath. Venous Doppler is showing evidence of a right lower extremity DVT. She does remain on IV heparin for her DVT and PE. She was seen by pulmonary service and felt that pneumonia was unlikely and antibiotics were discontinued. Urine culture is negative. White count is down to 14.9. Hemoglobin is 10.5 potassium 3.1 magnesium 1.6 and iron is low at 9. Patient denies any chest pain or shortness breath. Denies any nausea or vomiting. His been 3 days since her last bowel movement. On 04/16/2019 patient was seen and examined on the medical floor she is alert and oriented 3 in no apparent distress there is no fever or chills no headache or dizziness no chest pain no shortness of breath no cough no nausea or vomiting no abdominal pain no diarrhea and no urinary symptoms On 04/17/2019 patient alert and oriented 3. Patient has been cleared for discharge from cardiology standpoint. Patient will be DC'd to [facility] for rehab. Patient will be maintained on Xarelto pulmonary embolism along with new medications of Aldactone,, Coreg, Cozaar. At this time patient denies chest pain or shortness of breath. Patient denies nausea vomiting or diarrhea. Patient denies any urinary burning or frequency. She will be DC'd on Ceftin for 7 days for urinary tract infection I performed an examination of the patient and discussed their management with the Nurse Practitioner. I have reviewed the Nurse Practitioner's notes and agree with the documented findings and plan of care Patient Condition at Discharge: Stable Plan - Discharge Summary New Discharge Prescriptions: No Action No Known Home Medications Discharge Medication List No Known Home Medications 04/12/19 [History] Follow up Appointment(s)/Referral(s): Piper Mendez MD [Primary Care Provider] - 1-2 days Activity/Diet/Wound Care/Special Instructions: [facility]-needs 3 night stay-can leave wednesday 30 days of Eliquis-$45 30 days of Xarelto-$30.40
[2019-04-17] MEDS ORDERED: FUROSEMIDE 20 MG TAB PO SCH (16:00)
[2019-04-17 16:52] VITALS: BP 114/64; PULSE 77; RESP 18
[2019-04-17] MEDS ORDERED: ZOLPIDEM 5 MG TAB PO SCH (21:00)
[2019-04-18] MEDS ORDERED: FUROSEMIDE 40 MG TAB PO SCH (09:00)
== END 2019-04-17 18:08 | DRG 291 ==
LOC: EC 13:27 → SUPCPDRO 13:27 → 3SCARD 16:08 → OBSVTOIN 04-13 13:16
PROVIDERS: ADMIT Internal Medicine; ATTEND Internal Medicine
DX: I11.0 Hypertensive heart disease with heart failure (principal); I26.99 Other pulmonary embolism without acute cor pulmonale; E43 Unspecified severe protein-calorie malnutrition; I82.401 Acute embolism and thrombosis of unspecified deep veins of right lower extremity; N39.0 Urinary tract infection, site not specified; Z68.1 Body mass index [BMI] 19.9 or less, adult; I08.1 Rheumatic disorders of both mitral and tricuspid valves; D50.9 Iron deficiency anemia, unspecified; E83.42 Hypomagnesemia; E86.0 Dehydration; E87.6 Hypokalemia; G47.00 Insomnia, unspecified; I27.20 Pulmonary hypertension, unspecified; I42.9 Cardiomyopathy, unspecified; I50.23 Acute on chronic systolic (congestive) heart failure; K59.00 Constipation, unspecified; M06.9 Rheumatoid arthritis, unspecified; Z79.52 Long term (current) use of systemic steroids; Z79.899 Other long term (current) drug therapy; Z80.9 Family history of malignant neoplasm, unspecified; Z87.891 Personal history of nicotine dependence; Z91.19 Patient's noncompliance with other medical treatment and regimen
CPT/HCPCS: 36415; 71046; 71275; 80053; 81001; 82272; 82728; 83540; 83550; 83605; 83735; 83880; 84484; 85025; 85379; 85610; 85730; 87086; 93005; 93306; 93970; 94640; 94760; 96374; 96375; 99285